=== PATIENT | female | born 2000 | race Hispanic/Latino ===

== ENCOUNTER 2022-02-28 15:09 | Emergency (ER) | payer BC, SELFPAY ==
[2022-02-28 15:27] VITALS: BP 120/68; PULSE 66; RESP 18; TEMP 36.7; O2SAT 100
[2022-02-28 15:40] LABS: Add Urine Microscopic? YES; Appearance Urine Clear (Clear); Bilirubin Urine Negative (Negative); Blood Urine Negative (Negative); Color Urine Yellow (Yellow); Glucose Urine UA Negative (Negative); Ketones Urine Negative (Negative); Leukocyte Esterase Ur Trace LEU/UL (Negative); Nitrate Urine Negative (Negative); Protein Urine Negative (Negative); Specific Grav Ur <= 1.005 (1.001-1.035); Urobilinogen Urine 0.2 mg/dL (<2.0)
[2022-02-28 15:49] LABS: Mucus Urine Rare /lpf; RBC Urine 0-2 /hpf (0-2); Squamous Epithelial Cell Urine Rare /hpf (Few)
[2022-02-28 17:26] VITALS: BP 124/59; PULSE 68; RESP 17; TEMP 36.9; O2SAT 100
--- NOTE | 2022-02-28 19:52 | ED.FEMALEGU ---
HPI - Female Genitourinary General Chief complaint: Urogenital-Female <Graciela Carlos PA-C - Last Filed: 02/28/22 22:24> Stated complaint: STD testing <Graciela Carlos PA-C - Last Filed: 02/28/22 22:24> Time Seen by Provider: 02/28/22 19:03 <Graciela Carlos PA-C - Last Filed: 02/28/22 22:24> History of Present Illness HPI Narrative: Patient is a 21-year-old female here for STI screening. Patient states that her sexual partner slept with a new partner 2 weeks ago, and since then has her partner has been having dysuria. Patient herself is asymptomatic, denies any dysuria, urgency, frequency, burning, vaginal discharge, fevers, lower abdominal pain. She does note that she had an episode of vaginal bleeding after intercourse 1 week ago, but states that she started her menstrual cycle shortly afterwards. <RICHARD Landa Last Filed: 02/28/22 22:24> Related Data Allergies/Adverse reactions: Allergies Allergy/AdvReac Type Severity Reaction Status Date / Time No Known Allergies Allergy Verified 02/28/22 20:30 <RICHARD Landa Last Filed: 02/28/22 22:24> Review of Systems Review of Systems: Gen: Denies fevers or chills Eyes: Denies eye pain or visual change ENT: Denies congestion Respiratory: Denies shortness of breath or cough CV: Denies chest pain or palpitations GI: Denies abdominal pain nausea, emesis or diarrhea denies burning, urgency, frequency or hematuria Musculoskeletal: Denies back pain or muscle pain Neuro: Denies numbness, tingling, weakness or focal weakness Skin: Denies rash Except as documented, all other systems reviewed and negative <RICHARD Landa Last Filed: 02/28/22 22:24> Exam Narrative: APPEARANCE: Well appearing, no pain in distress, well-nourished. Head: Normocephalic and atraumatic. EYES: PERRLA/EOMI, conjunctivae clear NOSE: No nasal drainage EARS: External ear normal in appearance THROAT: Oropharynx is clear. Mucous membranes are moist. NECK: Supple. No adenopathy, no masses. RESPIRATORY: Airway patent, respirations nonlabored. Clear to auscultation bilaterally, no rales, rhonchi, wheezing. CARDIOVASCULAR: Regular rate and rhythm without murmurs, rubs, or gallops. ABDOMINAL: Normoactive bowel sounds. Soft, nontender, nondistended. No rebound tenderness or guarding. MUSCULOSKELETAL: Extremities are warm and well-perfused. Moves all extremities well. No edema. : Exam performed with food and nutrition teacher Kayla. Scant amount of blood noted in vaginal vault. No cervical lesions. No abnormal discharge. No cervical motion tenderness. NEURO: Normal speech. No focal neurologic deficits. SKIN: Skin is warm and dry. No rashes. PSYCHIATRIC: Normal affect/mood.. 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 I agree with the assessment and plan as documented. <Obed Mckeon MD - Last Filed: 03/11/22 07:44> Vital Signs Vital signs: Vital Signs Temperature 98.1 F 02/28/22 15:27 Pulse Rate 66 02/28/22 15:27 Respiratory Rate 18 02/28/22 15:27 Blood Pressure 120/68 02/28/22 15:27 Pulse Oximetry 100 02/28/22 15:27 Oxygen Delivery Room Air 02/28/22 15:27 Temperature 98.4 F 02/28/22 17:26 Pulse Rate 68 02/28/22 20:45 Respiratory Rate 14 02/28/22 20:45 Blood Pressure 120/87 02/28/22 20:45 Pulse Oximetry 95 02/28/22 20:45 Oxygen Delivery Room Air 02/28/22 15:27 <Graciela Carlos PA-C - Last Filed: 02/28/22 22:24> Vital Signs Temperature 98.1 F 02/28/22 15:27 Pulse Rate 66 02/28/22 15:27 Respiratory Rate 18 02/28/22 15:27 Blood Pressure 120/68 02/28/22 15:27 Pulse Oximetry 100 02/28/22 15:27 Oxygen Delivery Room Air 02/28/22 15:27 Temperature 98.4 F 02/28/22 17:26 Pulse Rate 68 02/28/22 20:45 Respiratory Rate 14 02/28/22
[2022-02-28] MEDS: WATER, STERILE FOR INJECTION 10 ML VIAL XX (20:18)
[2022-02-28] MEDS: cefTRIAXone 1 GM VIAL 0.5 GM IM (20:18)
[2022-02-28] MEDS: DOXYCYCLINE HYCLATE 100 MG TABLET PO (20:18)
--- NOTE | 2022-02-28 20:40 | P.HP_ITS ---
H&P: HPI History of Present Illness Date/Time: 02/28/22 20:40 Meds Home Medications and Allergies Home Medications Medication Instructions Recorded Confirmed Type doxycycline hyclate 100 mg capsule 100 mg PO BID #13 caps 02/28/22 Rx Allergies Allergy/AdvReac Type Severity Reaction Status Date / Time No Known Allergies Allergy Verified 02/28/22 20:30 Vital Signs Vital Signs - 24 hr 02/28/22 15:27 02/28/22 17:26 Temperature 98.1 F 98.4 F Pulse Rate 66 68 Respiratory Rate 18 17 Blood Pressure 120/68 124/59 L Pulse Oximetry 100 100 Oxygen Delivery Room Air H&P: Results Labs Labs: Urine 02/28/22 Range/Units 15:30 Urine Color Yellow (Yellow) Urine Appearance Clear (Clear) Urine pH 6.0 (5.0-9.0) Ur Specific [place] <= 1.005 (1.001-1.035) Urine Protein Negative (Negative) mg/dL Urine Glucose (UA) Negative (Negative) mg/dL
[2022-02-28 20:45] VITALS: BP 120/87; PULSE 68; RESP 14; O2SAT 95
== END 2022-02-28 20:47 | disposition home or self-care (01) ==
PROVIDERS: Emergency Medicine; Physician Assistant; Emergency Provider Preventive Medicine Aerospace Medicine
DX: Z11.3 Encounter for screening for infections with a predominantly sexual mode of transmission (principal)
CPT/HCPCS: 81001; 81025; 87491; 87591; 87808; 96372; 99284; A9270; J0696

== ENCOUNTER 2022-03-18 08:52 | Emergency (ER) | payer BC, SELFPAY ==
--- NOTE | ~2022-03-18 | CT_ITS ---
EXAMINATION: CT abdomen pelvis w con DATE: 03/18/2022 11:23 INDICATION: Pelvic pain for 4 days. TECHNIQUE: Computed tomography (CT) of the abdomen and pelvis was performed with 100 cc Omnipaque 350 intravenous contrast. The dose-length product was 161.75 mGy-cm. Automated exposure control and iter ative reconstruction technique were employed. COMPARISON: None. FINDINGS: Lung bases are unremarkable. Heart size normal. No significant pleural or pericardial effus ion. The liver, spleen, pancreas, adrenal glands or kidneys are unremarkable. Gallbladder is present. Nonobstructive bowel gas pattern. Bladder wall is mildly thickened, although not well distended. Sma ll amount of free fluid in the right pelvis. No significant vascular abnormality. No lymphadenopathy. There is endometrial thickening. IMPRESSION: 1. Mildly thickened bladder wall, possibly due to underdistention or cystitis. Correlate with urinaly sis. 2: Mild endometrial thickening. Reviewed, dictated and finalized at location B. IMPRESSION: 1. Mildly thickened bladder wall, possibly due to underdistention or cystitis. Correlate with urinalysis. 2: Mild endometrial thickening.
[2022-03-18 08:57] VITALS: BP 130/93
--- NOTE | 2022-03-18 09:03 | ED.FEMALEGU ---
HPI - Female Genitourinary General Chief complaint: Urogenital-Female Stated complaint: PID Symptms Time Seen by Provider: 03/18/22 08:56 History of Present Illness HPI Narrative: 21-year-old nontoxic appearing female presents to the emergency room for evaluation of returning pelvic pain. Patient states she was recently diagnosed for chlamydia 2 weeks ago, and completed a course of doxycycline. Patient states that she followed up with her LABORATORY MONITOR following the completion of her antibiotics, and was told that it was safe to resume sex. Patient states that she remained abstinent while taking her course of antibiotics. Patient states that she continued to have intercourse with the partner that infected her. Reports that her partner did also complete a course of antibiotics. Patient states that she began having pelvic pain about 4 days ago. Is concerned she may have PID. Denies fever, nausea vomiting, flank pain. Related Data Allergies Allergy/AdvReac Type Severity Reaction Status Date / Time No Known Allergies Allergy Verified 02/28/22 20:30 Review of Systems Review of Systems: CONSTITUTIONAL: Denies fever, chills, or sweats. EYES: Denies visual changes, redness, or discharge. ENT: Denies rhinorrhea, congestion, sore throat, or otalgia. CARDIOVASCULAR: Denies chest pain, palpitations, or edema. RESPIRATORY: Denies cough or dyspnea. GASTROINTESTINAL: Reports pelvic pain GENITOURINARY: Denies dysuria or hematuria. SKIN: Denies rash or itching. MUSCULOSKELETAL: Denies back pain, joint pain, or myalgia. NEUROLOGIC: Denies headache, numbness, dizziness, or weakness. PSYCHIATRIC: Denies anxiety or depression. Exam Narrative: GENERAL: Well-appearing, well-nourished, no physical limitations, and in no acute distress. HEAD: Normocephalic, atraumatic. EYES: Conjunctivae normal, PERRLA and EOMI. CHEST: Clear to auscultation. No respiratory distress. No wheezes rales or rhonchi. No tenderness. HEART: Regular rate and rhythm. No murmur heard. Normal peripheral pulses. ABDOMEN: Soft, suprapubic tenderness, nondistended, normal active bowel sounds. : Thick, white, chunky vaginal discharge in the vault. Cervical os is pink and closed. Positive cervical motion tenderness. No adnexal tenderness no external lesions, masses, rashes or ulcerations. BACK: No CVA tenderness; No cervical/thoracic/lumbar tenderness, step-offs, bony abnormality; FROM EXTREMITIES: Normal range of motion. No edema. No clubbing or cyanosis SKIN: Warm, dry, no rash. No noted wounds NEURO: No focal deficits. Alert and oriented x3. MAEW. CN's II-XI intact bilaterally, normal gait PSYCH: Cooperative. Normal mood and affect. Course Vital Signs Vital signs: Vital Signs Blood Pressure 130/93 H 03/18/22 08:57 Temperature 36.9 C 03/18/22 09:04 Pulse Rate 88 03/18/22 11:57 Respiratory Rate 16 03/18/22 11:57 Blood Pressure 117/75 03/18/22 11:57 Pulse Oximetry 100 03/18/22 11:57 Oxygen Delivery Room Air 03/18/22 09:04 MDM - Female Genitourinary MDM Narrative Medical decision making narrative: 21-year-old female presented emergency room for evaluation of suprapubic pain. Patient was recently diagnosed and treated for chlamydial infection. Patient returned to having intercourse with the individual who infected her. Pelvic exam showed evidence of moderate amount of white thick vaginal discharge, with no irritation of the vaginal canal. CT scan showed no evidence of pelvic inflammatory disease. Patient likely experiencing yeast infection along with an early UTI. Lab Data Result diagrams: 03/18/22 09:23 03/18/22 09:23 Labs: Lab Results 03/18/22 03/18/22 03/18/22 Range/Units 09:23 09:23 09:23 WBC 9.6 (4.5-10.0) K/mm3 RBC 4.07 L (4.2-5.4) M/mm3 Hgb 12.8 (12.0-15.0) g/dL Hct 38.5 (37.0-47.0) % MCV 94.6 (80-100) fl MCH 31.4 (26-34) pg MCHC 33.2 (32-36) g/dl RDW 13.1
[2022-03-18 09:04] VITALS: BP 130/93; PULSE 88; RESP 18; TEMP 36.9; O2SAT 99
[2022-03-18 09:29] LABS: Basophils Percent Auto 0.3 % (0.2-1.2); Eosinophils Absolute Auto 0.1 K/mm3 (0-0.3); Eosinophils Percent Auto 0.6 % (0-4.4); Hematocrit 38.5 % (37.0-47.0); Hemoglobin 12.8 g/dL (12.0-15.0); Immature Granulocyte Absolute 0.02 K/mm3 (0.00-0.031); Immature Granulocyte Percent A 0.2 % (0-0.5); Lymphocytes Absolute Auto 1.93 K/mm3 (0.9-3.2); Lymphocytes Percent Auto 20.2 % (18.3-44.2); Mean Corpuscular HGB Conc 33.2 g/dl (32-36); Mean Corpuscular Hemoglobin 31.4 pg (26-34); Mean Corpuscular Volume 94.6 fl (80-100); Mean Platelet Volume 10.1 fl (7.4-10.4); Monocytes Absolute Auto 0.6 K/mm3 (0.1-0.6); Monocytes Percent Auto 6.6 % (2.6-8.5); Neutrophils Absolute Auto 6.9 K/mm3 (1.3-6.7); Neutrophils Percent Auto 72.1 % (45.5-73.1); Platelet Count Result 255 k/mm3 (150-375); Red Blood Count 4.07 M/mm3 (4.2-5.4); Red Cell Distribution Width 13.1 % (11.5-14.5); White Blood Count 9.6 K/mm3 (4.5-10.0)
[2022-03-18 09:38] LABS: Appearance Urine Clear (Clear); Bilirubin Urine Negative (Negative); Blood Urine Negative (Negative); Color Urine Yellow (Yellow); Glucose Urine UA Negative (Negative); Ketones Urine 1+ mg/dL (Negative); Leukocyte Esterase Ur Trace LEU/UL (Negative); Nitrate Urine Negative (Negative); Protein Urine Negative (Negative); Specific Grav Ur 1.025 (1.001-1.035); Urobilinogen Urine 0.2 mg/dL (<2.0); pH Urine 5.5 (5.0-9.0)
[2022-03-18 09:40] LABS: Lactic Acid Reflex 0.5 mmol/L (0.7-2.0)
[2022-03-18 09:44] LABS: Alanine Aminotransferase 14 U/L (6-35); Albumin Level 4.3 g/dL (3.5-5.1); Alkaline Phosphatase 44 U/L (38-126); Anion Gap 11 mmol/L (8-16); Aspartate Amino Transferase 35 U/L (14-36); Bilirubin,Total 0.7 mg/dL (0.2-1.3); Blood Urea Nitrogen 12 mg/dL (7-17); Calcium 8.8 mg/dL (8.4-10.2); Carbon Dioxide 19 mmol/L (22-30); Chloride 104 mmol/L (98-107); Estimated Glomerular Filt Rate > 60; Glucose 81 mg/dL (65-110); Potassium 4.1 mmol/L (3.4-5.0); Sodium 134 mmol/L (137-145)
[2022-03-18 09:44] LABS: Bacteria Urine Trace /hpf; Mucus Urine Few /lpf; RBC Urine 0-2 /hpf (0-2); Squamous Epithelial Cell Urine Occasional /hpf (Few); WBC Urine 0-3 /hpf
[2022-03-18 09:50] LABS: Add Urine Microscopic? YES
[2022-03-18] MEDS: SODIUM CHLORIDE 0.9% IV 1,000 ML 999 ML IV CONT (10:04)
[2022-03-18 11:11] LABS: Pregnancy On Board Control Positive; Urine Pregnancy Test Negative
[2022-03-18 11:57] VITALS: BP 117/75; PULSE 88; RESP 16; O2SAT 100
== END 2022-03-18 12:17 | disposition home or self-care (01) ==
PROVIDERS: Emergency Provider Nurse Practitioner Family
DX: N39.0 Urinary tract infection, site not specified (principal); B37.3 Candidiasis of vulva and vagina
CPT/HCPCS: 36415; 74177; 80053; 81001; 81025; 83605; 85025; 87491; 87591; 87808; 96360; 99284; J7030; Q9967

== ENCOUNTER 2022-07-25 09:59 | Emergency (ER) | payer BC, OTHER, MEDICAID, SELFPAY ==
--- NOTE | 2022-07-25 10:17 | ED.NAVMDI ---
HPI - Nausea/Vomiting/Diarrhea General Chief complaint: Nausea/Vomiting/Diarrhea Stated complaint: nausea, bloating, vomiting, diarrhea Time Seen by Provider: 07/25/22 10:07 History of Present Illness HPI Narrative: Pt presents with bloated feeling in stomach with vomiting x 6 and several episodes of diarrhea since 0300 today. Pt denies fever or other sick contacts. Pt not able to keep down fluids. Related Data Allergies Allergy/AdvReac Type Severity Reaction Status Date / Time No Known Allergies Allergy Verified 07/25/22 10:47 Review of Systems Review of Systems: All systems reviewed & are unremarkable except as noted in HPI and below Exam Const: General: healthy appearing Nutritional Appearance: well nourished Orientation/consciousness: patient oriented x3 Limitations: no limitations HENMT: Head: normal to inspection Mouth: Yes moist mucous membranes Resp: Effort & Inspection: normal respiratory effort Auscultation: clear to auscultation bilaterally Cardio: Rate: regular rate Rhythm: regular rhythm GI: GI Palp: Yes Soft to palpation and No Tenderness to palpation present (GI) Auscultation: normal bowel sounds Back/Spine/Pelvis: Back: no CVA tenderness Skin: General skin exam: normal color Rashes: no rashes Wounds: no wounds Neuro: General: patient oriented x3, moves all extremities and no focal motor deficits Speech: normal speech Extrem: General: normal to inspection and no clubbing, cyanosis or edema Psych: Mental Status: mental status grossly normal Affect: normal affect Attitude: cooperative Course Vital Signs Vital signs: Vital Signs Temperature 98.7 F 07/25/22 10:28 Pulse Rate 89 07/25/22 10:28 Respiratory Rate 18 07/25/22 10:28 Blood Pressure 141/85 H 07/25/22 10:28 Pulse Oximetry 99 07/25/22 10:28 Oxygen Delivery Room Air 07/25/22 10:28 Temperature 98.7 F 07/25/22 10:28 Pulse Rate 77 07/25/22 11:42 Respiratory Rate 20 07/25/22 11:42 Blood Pressure 116/78 07/25/22 13:08 Pulse Oximetry 99 07/25/22 10:28 Oxygen Delivery Room Air 07/25/22 10:28 MDM - Nausea/Vomiting/Diarrhea MDM Narrative Medical decision making narrative: likely viral gastroenteritis, will check electrolytes to be safe and give IVF and zofran. Still nauseated after zofran, labs not concerning, will try compazine 10 mg IV. Compazine relieved nausea, ok to discharge on antiemetics Lab Data 07/25/22 10:28 07/25/22 10:29 Labs: Lab Results 07/25/22 07/25/22 Range/Units 10:28 10:29 WBC 9.5 (4.5-10.0) K/mm3 RBC 4.19 L (4.2-5.4) M/mm3 Hgb 13.5 (12.0-15.0) g/dL Hct 40.2 (37.0-47.0) % MCV 95.9 (80-100) fl MCH 32.2 (26-34) pg MCHC 33.6 (32-36) g/dl RDW 13.2 (11.5-14.5) % Plt Count TNP MPV 11.6 H (7.4-10.4) fl Immature Gran % (Auto) 0.4 (0-0.5) % Neut % (Auto) 89.5 H (45.5-73.1) % Lymph % (Auto) 6.9 L (18.3-44.2) % [place] % (Auto) 2.9 (2.6-8.5) % Eos % (Auto) 0.1 (0-4.4) % Baso % (Auto) 0.2 (0.2-1.2) % Lymph # (Auto) 0.66 L (0.9-3.2) K/mm3 [place] # (Auto) 0.3 (0.1-0.6) K/mm3 Eos # (Auto) 0.0 (0-0.3) K/mm3 Baso # (Auto) 0.0 (0.0-0.1) K/mm3 Abs Immat Gran (auto) 0.04 H (0.00-0.031) K/mm3 Absolute Neuts (auto) 8.5 H (1.3-6.7) K/mm3 Absolute Nucleated RBC 0.0 (0.0-0.012) K/mm3 Nucleated RBC % 0.0 (0.0-0.2) % Platelet Estimate Adequate (Adequate) Clumped Platelets Present % Immature Plt Fraction 9.7 (0.9-11.2) % Schistocytes None seen (NORMAL) Sodium 135 L (137-145) mmol/L Potassium 4.0 (3.4-5.0) mmol/L Chloride 107 (98-107) mmol/L Carbon Dioxide 21 L (22-30) mmol/L Anion Gap 7 L (8-16) mmol/L BUN 14 (7-17) mg/dL Creatinine 0.60 L (0.7-1.0) mg/dL Estim Creat Clear Calc 90 ml/min Estimated GFR > 60 (59 - ) Glucose 143 H (65-110) mg/dL Calcium 8.9 (8.4-10.2) mg/dL Total Bilirubin 0.7 (0.2-1.3
[2022-07-25 10:28] VITALS: BP 141/85; PULSE 89; RESP 18; TEMP 37.1; O2SAT 99
[2022-07-25] MEDS: SODIUM CHLORIDE 0.9% IV 1,000 ML 999 ML IV CONT (10:39)
[2022-07-25] MEDS: ONDANSETRON INJ 4 MG/2 ML VIAL IV PUSH (10:39)
[2022-07-25 10:53] LABS: Basophils Percent Auto 0.2 % (0.2-1.2); Eosinophils Percent Auto 0.1 % (0-4.4); Hematocrit 40.2 % (37.0-47.0); Hemoglobin 13.5 g/dL (12.0-15.0); Immature Granulocyte Absolute 0.04 K/mm3 (0.00-0.031); Immature Granulocyte Percent A 0.4 % (0-0.5); Immature Platelet Fraction Pct 9.7 % (0.9-11.2); Lymphocytes Absolute Auto 0.66 K/mm3 (0.9-3.2); Lymphocytes Percent Auto 6.9 % (18.3-44.2); Mean Corpuscular HGB Conc 33.6 g/dl (32-36); Mean Corpuscular Hemoglobin 32.2 pg (26-34); Mean Corpuscular Volume 95.9 fl (80-100); Mean Platelet Volume 11.6 fl (7.4-10.4); Monocytes Absolute Auto 0.3 K/mm3 (0.1-0.6); Monocytes Percent Auto 2.9 % (2.6-8.5); Neutrophils Absolute Auto 8.5 K/mm3 (1.3-6.7); Neutrophils Percent Auto 89.5 % (45.5-73.1); Red Blood Count 4.19 M/mm3 (4.2-5.4); Red Cell Distribution Width 13.2 % (11.5-14.5); White Blood Count 9.5 K/mm3 (4.5-10.0)
[2022-07-25 10:56] LABS: Alanine Aminotransferase 21 U/L (6-35); Albumin Level 4.4 g/dL (3.5-5.1); Alkaline Phosphatase 50 U/L (38-126); Anion Gap 7 mmol/L (8-16); Aspartate Amino Transferase 29 U/L (14-36); Bilirubin,Total 0.7 mg/dL (0.2-1.3); Blood Urea Nitrogen 14 mg/dL (7-17); Calcium 8.9 mg/dL (8.4-10.2); Carbon Dioxide 21 mmol/L (22-30); Chloride 107 mmol/L (98-107); Estimated CRCL calculation 90 ml/min; Estimated Glomerular Filt Rate > 60; Glucose 143 mg/dL (65-110); Sodium 135 mmol/L (137-145)
[2022-07-25 11:25] LABS: Platelet Clumps Present; Platelet Estimate Adequate (Adequate); Schistocytes None Seen (NORMAL)
[2022-07-25 11:42] VITALS: BP 118/63; PULSE 77; RESP 20
[2022-07-25] MEDS: PROCHLORPERAZINE EDISYLATE 10 MG/2 ML VIAL IV PUSH (11:43)
[2022-07-25 13:08] VITALS: BP 116/78
== END 2022-07-25 13:10 | disposition home or self-care (01) ==
PROVIDERS: Emergency Provider Emergency Medicine
DX: K52.9 Noninfective gastroenteritis and colitis, unspecified (principal)
CPT/HCPCS: 36415; 80053; 85025; 85055; 96361; 96374; 96375; 99284; J0780; J2405; J7030

== ENCOUNTER 2023-05-13 19:25 | Observation (INO) | payer BC, OTHER, SELFPAY ==
[2023-05-13] VITALS (12 sets, daily range): BP systolic 122–136; BP diastolic 73–93; PULSE 71–104; RESP 16–19; TEMP 36.7; O2SAT 97–100
--- NOTE | ~2023-05-13 | CT_ITS ---
EXAMINATION: CT abdomen pelvis w con DATE: 05/13/2023 21:23 INDICATION: Lower abdominal pain TECHNIQUE: Computed tomography (CT) of the abdomen and pelvis was performed with 100 mL Omnipaque-350 intravenous contrast. Automated exposure control and iterative reconstruction technique were employe d. The dose-length product was 187.85 mGy-cm. COMPARISON: 03/18/2022 FINDINGS: Lung bases are clear. Heart size is normal. No pericardial or pleural effusion. Unchanged focal hepat ic steatosis along the ligamentum teres. Gallbladder, spleen, pancreas, bilateral adrenal glands and kidneys are normal. Bowels including the appendix are normal. There is diffuse bladder wall thickenin g suspicious for cystitis. Anteverted uterus and bilateral adnexa are unremarkable. No free intraperi toneal gas or fluid. No pathologically enlarged abdominal or pelvic lymphadenopathy. Mild lower lumba r spondylosis. IMPRESSION: 1. Diffuse bladder wall thickening suspicious for cystitis. Correlate with urinalysis. Reviewed, dictated and finalized at location A. IMPRESSION: 1. Diffuse bladder wall thickening suspicious for cystitis. Correlate with urin alysis.
--- NOTE | 2023-05-13 19:52 | ED.ABDPAIN ---
HPI - Abdominal Pain General Chief Complaint: Abdominal Pain Stated Complaint: abd pain, back pain, N/V Time Seen by Provider: 05/13/23 19:40 Source: patient Mode of arrival: ambulatory Limitations: no limitations History of Present Illness HPI narrative: 22 years old white female drove herself to the emergency room complaining of mid back pain, across, started 6 hours prior to arrival to the emergency room radiating to the upper abdomen bilaterally, denies any relieving or aggravating factors. No history of abdominal surgery. On arrival to the ED patient vomited 3 times. No diarrhea, no fever or chills. Patient had a few drinks of alcohol last night. Related Data Allergies Allergy/AdvReac Type Severity Reaction Status Date / Time No Known Allergies Allergy Verified 07/25/22 10:47 Review of Systems Review of Systems: All systems reviewed & are unremarkable except as noted in HPI and below PMFSH Past Medical History Medical History (Updated 05/13/23 @ 21:48 by Ingrid Kaba PA-C) No significant medical problems Social History Social History Social History: Surrogate medical decision maker: Clarisse Art, mother. Code status: Full code. Exam Narrative: General appearance: Well-developed, well-nourished Skin: Normal color Head: Normocephalic, nontraumatic Eyes: Clear conjunctiva ENT: Oropharynx normal, ears normal, nose normal Neck: Supple, nontender Chest and respiratory: Airway patent, no respiratory distress, no accessory muscle use Heart: Regular rate/rhythm Abdomen: Soft, epigastric tenderness, flank tenderness bilaterally mainly on the right side, no organomegaly, quiet bowel sounds Vascular: Normal peripheral pulses, normal capillary refill. 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 Date: 05/13/23 Time: 21:19 Vital Signs Vital signs: Vital Signs Temperature 36.7 C 05/13/23 19:30 Pulse Rate 104 H 05/13/23 19:30 Respiratory Rate 16 05/13/23 19:30 Blood Pressure 136/85 05/13/23 19:30 Pulse Oximetry 100 05/13/23 19:30 Oxygen Delivery Room Air 05/13/23 19:30 Temperature 36.7 C 05/13/23 19:30 Pulse Rate 72 05/13/23 20:38 Respiratory Rate 18 05/13/23 20:38 Blood Pressure 135/73 05/13/23 20:38 Pulse Oximetry 97 05/13/23 20:38 Oxygen Delivery Room Air 05/13/23 19:30 MDM - Abdominal Pain MDM Narrative Medical decision making narrative: Patient is 22 years old female presents with back pain mainly right flank area and upper abdominal pain vitals are stable, afebrile exam remarkable for the above blood work with elevated WBC 20.8 with left shift, urine analysis remarkable for infection, pyelonephritis is my concern, 1 g Rocephin IV given, 1 L of normal saline given, 4 mg of morphine and 4 mg of Zofran IV given with remarkable improvement. CT abdomen pelvis with IV contrast that showed finding consistent with cystitis. I believe patient have pyelonephritis which she is consistent with her physical examination with severe tenderness at the mid back mainly right flank area. Admission to the hospital is appropriate at this time because of the vomiting, unable to keep anything down and leukocytosis. Patient agreed. Differential Diagnosis Differential diagnosis: Likely abdominal pain, calculus of kidney, pancreatitis and other (Urinary tract infection, pyelonephritis) Medical Records Attestation: I reviewed the patient's medical r
[2023-05-13] MEDS: ONDANSETRON INJ 4 MG/2 ML VIAL IV PUSH (20:06)
[2023-05-13] MEDS: SODIUM CHLORIDE 0.9% IV 1,000 ML 999 ML IV CONT (20:06)
[2023-05-13] MEDS: MORPHINE SULFATE (*CRX) 4 MG/ML INJ IV PUSH (20:07)
[2023-05-13 20:14] LABS: Hematocrit 42.5 % (37.0-47.0); Mean Corpuscular HGB Conc 32.9 g/dl (32-36); Mean Corpuscular Hemoglobin 31.4 pg (26-34); Mean Corpuscular Volume 95.3 fl (80-100); Mean Platelet Volume 10.6 fl (7.4-10.4); Platelet Count Result 294 k/mm3 (150-375); Red Blood Count 4.46 M/mm3 (4.2-5.4); Red Cell Distribution Width 13.4 % (11.5-14.5); White Blood Count 20.8 K/mm3 (4.5-10.0)
[2023-05-13 20:20] LABS: Appearance Urine Turbid (Clear); Bacteria Urine 4+ /hpf; Bilirubin Urine Negative (Negative); Blood Urine 3+ (Negative); Color Urine Yellow (Yellow); Glucose Urine UA Negative (Negative); Ketones Urine 3+ mg/dL (Negative); Leukocyte Esterase Ur 3+ LEU/UL (Negative); Nitrate Urine Negative (Negative); Non Pathogenic Casts 0-2; Protein Urine 2+ mg/dL (Negative); RBC Urine >100 /hpf (0-2); Specific Grav Ur 1.016 (1.001-1.035); Squamous Epithelial Cell Urine None seen /hpf (Few); Urobilinogen Urine 0.2 mg/dL (<2.0); WBC Urine >100 /hpf; pH Urine 6.5 (5.0-9.0)
[2023-05-13 20:23] LABS: Add Urine Microscopic? YES
[2023-05-13 20:28] LABS: Alanine Aminotransferase 18 U/L (6-35); Albumin Level 4.9 g/dL (3.5-5.1); Alkaline Phosphatase 79 U/L (38-126); Anion Gap 11 mmol/L (8-16); Aspartate Amino Transferase 24 U/L (14-36); Blood Urea Nitrogen 10 mg/dL (7-17); Calcium 9.4 mg/dL (8.4-10.2); Carbon Dioxide 22 mmol/L (22-30); Chloride 102 mmol/L (98-107); Estimated CRCL calculation 77 ml/min; Estimated Glomerular Filt Rate > 60; Glucose 90 mg/dL (65-110); Lipase 66 U/L (23-300); Potassium 3.5 mmol/L (3.4-5.0); Sodium 135 mmol/L (137-145)
[2023-05-13 20:49] LABS: Basophils Percent Manual 1 % (0-1); Lymphocytes Absolute Manual 0.62 K/mm3 (1.1-4.5); Monocytes Absolute Manual 0.83 K/mm3 (0.1-0.90); Monocytes Percent Manual 4 % (3-9); Neutrophils Percent Manual 92 % (46-73); Total Cells Counted 100
[2023-05-13 20:50] LABS: Platelet Estimate Adequate (Adequate); Schistocytes None Seen (NORMAL)
--- NOTE | 2023-05-13 21:11 | PC.NURSE ---
Patient taken to CT at this time.
--- NOTE | 2023-05-13 21:41 | PM.IMHP ---
H&P: HPI History of Present Illness Date/Time: 05/13/23 21:30 Chief Complaint: Dysuria, nausea, vomiting, back pain. Narrative: This is a previously healthy 22-year-old female who presented to the emergency department via private vehicle from home for evaluation of dysuria, nausea, vomiting, back pain. The patient provides the following history. She has a history of urinary tract infections and finished antibiotics for the same a couple of weeks ago. She has had intermittent dysuria since that time however it seems to improve when she pushes fluid. Approximately 6 hours prior to arrival to the ED she developed near sudden onset of diffuse mid to low back pain with nausea and emesis x3. She was afebrile on arrival to the ED with stable blood pressures. Labs were pretty unremarkable aside from a sodium of 135 and a WBC count of 20.8. Urine was turbid with 2+ protein, 3+ ketones, 3+ blood, 3+ leukocyte esterase, greater than 100 RBC and WBC, and 4+ bacteria. CT of the abdomen and pelvis showed diffuse bladder wall thickening suspicious for cystitis. She received a dose of ceftriaxone and she is being admitted in this setting for further IV antibiotics and supportive care. Review of Systems Review of Systems: Twelve systems were reviewed and are negative except for as per HPI. [facility] Past Medical History Medical History (Updated 05/13/23 @ 21:48 by Ingrid Kaba PA-C) No significant medical problems Surgical History Surgical History (Updated 05/13/23 @ 22:25 by Ingrid Kaba PA-C) No history of previous surgery Family History Family History (Updated 05/13/23 @ 22:25 by Ingrid Kaba PA-C) Other Family history non-contributory Social History Social History (Updated 05/13/23 @ 22:26 by Ingrid Kaba PA-C) Social History: Surrogate medical decision maker: Clarisse Beverly, mother. Code status: Full code. Smoking status: Never smoker Alcohol intake: current Alcohol use details: Social alcohol use in moderation. Substance use: never Additional occupation/education comments: Works at [employer]. Meds Home Medications and Allergies Home Medications Medication Instructions Recorded Confirmed Type doxycycline hyclate 100 mg capsule 100 mg PO BID #13 caps 02/28/22 Rx fluconazole 100 mg tablet 200 mg PO WEEKLY #4 tabs 03/18/22 Rx nitrofurantoin 100 mg PO Q12H 5 days #10 caps 03/18/22 Rx monohydrate/macrocrystals 100 mg capsule (Macrobid) ondansetron 4 mg disintegrating 4 mg PO Q8H PRN nausea and 07/25/22 Rx tablet vomiting #14 tabs prochlorperazine 25 mg rectal 25 mg RECTAL Q12H PRN nausea and 07/25/22 Rx suppository (Compro) vomiting #12 ea Allergies Allergy/AdvReac Type Severity Reaction Status Date / Time No Known Allergies Allergy Verified 07/25/22 10:47 Vital Signs Vital Signs - 24 hr 05/13/23 19:30 05/13/23 20:38 Temperature 98.1 F Pulse Rate 104 H 72 Respiratory Rate 16 18 Blood Pressure 136/85 135/73 Pulse Oximetry 100 97 Oxygen Delivery Room Air Exam Narrative: General: Mildly ill-appearing female sitting up in bed in no acute distress. Weight: 54.5 kg. BMI: 23.5. HEENT: PERRL, EOMI. Sclera anicteric. Tacky mucous membranes. Neck: Supple. Respiratory: Lungs are clear to auscultation bilaterally. Cardiovascular: Tachycardic with normal S1-S2. Gastrointestinal: Abdomen is soft and nondistended with positive bowel sounds. She is tender to palpation in the suprapubic region with mild CVA tenderness bilaterally. No guarding or rebound tenderness. Skin: Warm and dry. Scattered bruises on the upper thighs. Extremities: No cyanosis, clubbing, or edema. Radial and pedal pulses intact. Neurological: Alert. Cranial nerves 2-12 are grossly intact. No gross focal deficits to casual conversation. Psychiatric: Pleasant and cooperative with normal mood and affect. H&P: Results Labs Labs: Short CBC 05/13/23 Range
--- NOTE | 2023-05-13 23:46 | ADMGEN ---
This patient, Lupe Art, was admitted to 3 Medical Room 345-. Patient/family oriented to hospital policies and general routines including ID bracelet, bed and alarms, visiting hours, pain management, procedures, bathroom and other care routines, personal items, smoking policy, room service/diet, and visiting hours. Information on how to activate the Rapid Response Team has been discussed. Patient/Family are encouraged to report perceived risks to care and to ask questions if they do not understand what they are told or what they should do.
[2023-05-13] MEDS: SODIUM CHLORIDE 0.9% IV 1,000 ML 100 ML IV CONT (23:57)
[2023-05-14 01:05] VITALS: BMI 20.2
[2023-05-14 01:06] VITALS: BP 125/84; PULSE 89; RESP 16; TEMP 37.3; O2SAT 100
[2023-05-14 05:40] LABS: Basophils Percent Auto 0.3 % (0.2-1.2); Eosinophils Percent Auto 0.1 % (0-4.4); Hematocrit 37.3 % (37.0-47.0); Hemoglobin 12.1 g/dL (12.0-15.0); Immature Granulocyte Absolute 0.05 K/mm3 (0.00-0.031); Immature Granulocyte Percent A 0.4 % (0-0.5); Lymphocytes Absolute Auto 2.31 K/mm3 (0.9-3.2); Lymphocytes Percent Auto 16.2 % (18.3-44.2); Mean Corpuscular HGB Conc 32.4 g/dl (32-36); Mean Corpuscular Hemoglobin 31.5 pg (26-34); Mean Corpuscular Volume 97.1 fl (80-100); Mean Platelet Volume 10.2 fl (7.4-10.4); Monocytes Percent Auto 6.7 % (2.6-8.5); Neutrophils Absolute Auto 10.9 K/mm3 (1.3-6.7); Neutrophils Percent Auto 76.3 % (45.5-73.1); Platelet Count Result 249 k/mm3 (150-375); Red Blood Count 3.84 M/mm3 (4.2-5.4); Red Cell Distribution Width 13.4 % (11.5-14.5); White Blood Count 14.3 K/mm3 (4.5-10.0)
[2023-05-14 05:50] VITALS: BP 128/58; PULSE 81; RESP 16; TEMP 36.5; O2SAT 100
[2023-05-14 05:52] LABS: Anion Gap 7 mmol/L (8-16); Blood Urea Nitrogen 6 mg/dL (7-17); Calcium 8.5 mg/dL (8.4-10.2); Carbon Dioxide 24 mmol/L (22-30); Chloride 104 mmol/L (98-107); Estimated CRCL calculation 89 ml/min; Estimated Glomerular Filt Rate > 60; Glucose 81 mg/dL (65-110); Magnesium 2.1 mg/dL (1.6-2.3); Potassium 3.9 mmol/L (3.4-5.0); Sodium 135 mmol/L (137-145)
[2023-05-14] MEDS: SODIUM CHLORIDE 0.9% IV 1,000 ML 100 ML IV CONT ×2 (09:56→20:44)
--- NOTE | 2023-05-14 13:30 | PM.IMPN ---
Progress Note: A&P Assessment and Plan (1) Urinary tract infection: Code(s): N39.0 - Urinary tract infection, site not specified Status: Acute Assessment and Plan: urine with 3+ blood, 3+ leukocyte esterase, greater than 100 rbc's and wbc's and 4+ bacteria IV fluids continue. Rocephin continued. Urine cultures pending. Blood cultures pending Tailor antibiotic therapy to culture results (2) Dehydration: Code(s): E86.0 - Dehydration Status: Acute Assessment and Plan: continue IV fluid hydration. Subjective Date/time seen: 05/14/23 13:30 Interval history: Patient doing well and states that she is feeling much better. She denies any nausea, back pain and dysuria. States that medications and antibiotics had made her feel much better. Discussed with her that it is do to wait for urine cultures to return prior to discharge and she voiced understanding. Exam Narrative: GENERAL: Comfortable, no acute distress HENMT: moist mucous membranes EYES: EOM intact b/l NECK: no lymphadenopathy RESPIRATORY: clear to auscultation CARDIO: RRR GI: soft, nontender, bowel sounds present SKIN: no rashes EXTREMITIES: no edema, redness or tenderness Objective Data Vital Signs Vital Signs: Vital Signs - 24 hr 05/13/23 19:30 05/13/23 20:38 05/13/23 20:39 Temperature 98.1 F Pulse Rate 104 H 72 Respiratory Rate 16 18 Blood Pressure 136/85 135/73 Pulse Oximetry 100 97 99 Oxygen Delivery Room Air 05/13/23 20:45 05/13/23 21:31 05/13/23 21:40 Temperature Pulse Rate Respiratory Rate Blood Pressure 134/93 H Pulse Oximetry 100 100 99 Oxygen Delivery 05/13/23 21:50 05/13/23 22:17 05/13/23 22:30 Temperature Pulse Rate Respiratory Rate Blood Pressure Pulse Oximetry 99 99 98 Oxygen Delivery 05/13/23 22:56 05/13/23 23:00 05/13/23 23:31 Temperature Pulse Rate 89 71 Respiratory Rate 17 19 Blood Pressure 122/79 123/92 H Pulse Oximetry 98 99 100 Oxygen Delivery 05/13/23 23:40 05/14/23 01:06 05/14/23 05:50 Temperature 99.1 F 97.7 F Pulse Rate 89 81 Respiratory Rate 16 16 Blood Pressure 125/84 128/58 L Pulse Oximetry 100 100 Oxygen Delivery Room Air Intake/Output Intake/Output: Intake & Output 05/11/23 05/12/23 05/13/23 05/14/23 23:59 23:59 23:59 23:59 Intake Total 1050 1690 Output Total 600 Balance 1050 1090 Meds/Results Medications: Active Medications Generic Name Dose Route Start Last Admin Trade Name Freq PRN Reason Stop Dose Admin Acetaminophen 650 mg 05/13/23 21:26 Acetaminophen 325 Mg Tablet PO Q4H PRN Mild Pain (1-3) or Fever Ceftriaxone Sodium 1 gm in 50 mls @ 100 mls/hr 05/13/23 21:00 05/13/23 22:09 Rocephin 1 Gm/Ns 50 Ml IVPB Infused Q24H JESI Infusion Sodium Chloride 1,000 mls @ 100 mls/hr 05/13/23 21:30 05/14/23 09:56 Normal Saline Iv IV CONT 100 mls/hr .Q10H JESI Administration Ondansetron HCl 4 mg 05/13/23 21:26 Ondansetron Inj 4 Mg/2 Ml Vial IV PUSH Q4H PRN Nausea Radiology Results: ITS Impressions Abdomen/Pelvis CT 05/13/23 21:36 IMPRESSION: 1. Diffuse bladder wall thickening suspicious for cystitis. Correlate with urinalysis. Labs Labs: Laboratory Results - last 24 hr 05/13/23 05/14/23 20:05 05:28 WBC 20.8 H 14.3 H RBC 4.46 3.84 L Hgb 14.0 12.1 Hct 42.5 37.3 MCV 95.3 97.1 MCH 31.4 31.5 MCHC 32.9 32.4 RDW 13.4 13.4 Plt Count 294 249 MPV 10.6 H 10.2 Immature Gran % (Auto) Not Reportable 0.4 Neut % (Auto) Not Reportable 76.3 H Lymph % (Auto) Not Reportable 16.2 L [place] % (Auto) Not Reportable 6.7 Eos % (Auto) Not Reportable 0.1 Baso % (Auto) Not Reportable 0.3 Lymph # (Auto) Not Reportable 2.31 [place] # (Auto) Not Reportable 1.0 H Eos # (Auto) Not Reportable 0.0 Baso # (Auto) Not Reportable 0.0 Abs Immat Gran (auto) Not Reportab
[2023-05-14 14:00] VITALS: BP 130/70; PULSE 89; RESP 14; TEMP 36.4; O2SAT 99
[2023-05-14 20:43] VITALS: BP 124/69; PULSE 66; RESP 18; TEMP 36.6; O2SAT 100
[2023-05-15 05:12] VITALS: BP 108/67; PULSE 78; RESP 18; TEMP 36.3; O2SAT 100
[2023-05-15 06:16] LABS: Basophils Percent Auto 0.7 % (0.2-1.2); Eosinophils Absolute Auto 0.1 K/mm3 (0-0.3); Eosinophils Percent Auto 1.7 % (0-4.4); Hematocrit 37.9 % (37.0-47.0); Hemoglobin 11.9 g/dL (12.0-15.0); Immature Granulocyte Absolute 0.02 K/mm3 (0.00-0.031); Immature Granulocyte Percent A 0.3 % (0-0.5); Lymphocytes Absolute Auto 2.31 K/mm3 (0.9-3.2); Lymphocytes Percent Auto 39.6 % (18.3-44.2); Mean Corpuscular HGB Conc 31.4 g/dl (32-36); Mean Corpuscular Hemoglobin 31.2 pg (26-34); Mean Corpuscular Volume 99.5 fl (80-100); Mean Platelet Volume 11.4 fl (7.4-10.4); Monocytes Absolute Auto 0.6 K/mm3 (0.1-0.6); Monocytes Percent Auto 9.4 % (2.6-8.5); Neutrophils Absolute Auto 2.8 K/mm3 (1.3-6.7); Neutrophils Percent Auto 48.3 % (45.5-73.1); Platelet Count Result 225 k/mm3 (150-375); Red Blood Count 3.81 M/mm3 (4.2-5.4); Red Cell Distribution Width 13.8 % (11.5-14.5); White Blood Count 5.8 K/mm3 (4.5-10.0)
[2023-05-15 06:27] LABS: Alanine Aminotransferase 13 U/L (6-35); Albumin Level 3.7 g/dL (3.5-5.1); Alkaline Phosphatase 52 U/L (38-126); Anion Gap 4 mmol/L (8-16); Aspartate Amino Transferase 16 U/L (14-36); Bilirubin,Total 0.7 mg/dL (0.2-1.3); Blood Urea Nitrogen 6 mg/dL (7-17); Calcium 8.7 mg/dL (8.4-10.2); Carbon Dioxide 27 mmol/L (22-30); Chloride 107 mmol/L (98-107); Estimated CRCL calculation 77 ml/min; Estimated Glomerular Filt Rate > 60; Glucose 79 mg/dL (65-110); Potassium 4.1 mmol/L (3.4-5.0); Sodium 138 mmol/L (137-145)
--- NOTE | 2023-05-15 10:50 | PM.DS ---
DS: Admitting Diagnosis Discharge Date 05/15/23 Admitting Diagnosis UTI DS: Discharge Diagnosis Discharge Diagnosis (1) Urinary tract infection: Code(s): N39.0 - Urinary tract infection, site not specified Status: Acute (2) Dehydration: Code(s): E86.0 - Dehydration Status: Acute DS: Summary Hospital Course Hospital Course: This is a [age]-year-old female with insignificant past medical history presents to the ED due to dysuria, nausea, vomiting and back pain. Patient had recently had a UTI and had been treated with p.o. antibiotics couple weeks prior. She was found to have a white blood cell count of 20.8. Urine with 3+ blood, 3+ leukocyte esterase and greater than 100 rbc's and wbc's with 4+ bacteria. CT abdomen pelvis showed diffuse bladder wall thickening suspicious for cystitis. She was started on Rocephin. Urine culture came back positive for Staphylococcus saprophyticus and she was transitioned to Levaquin. Her white blood cell count has come back within normal range. She states that her dysuria, nausea and back pain have all resolved. Labs and vital signs are stable she is medically clear for discharge at this time. Time Spent with Patient Time attestation: Total time spent providing and/or coordinating discharge services: Exam Narrative: GENERAL: Comfortable, no acute distress HENMT: moist mucous membranes EYES: EOM intact b/l NECK: no lymphadenopathy RESPIRATORY: clear to auscultation CARDIO: RRR GI: soft, nontender, bowel sounds present SKIN: no rashes EXTREMITIES: no edema, redness or tenderness DS: Data Data Completed and Pending Labs on day of discharge: Labs from last 24 hours 05/15/23 05:34 WBC 5.8 RBC 3.81 L Hgb 11.9 L Hct 37.9 MCV 99.5 MCH 31.2 MCHC 31.4 L RDW 13.8 Plt Count 225 MPV 11.4 H Immature Gran % (Auto) 0.3 Neut % (Auto) 48.3 Lymph % (Auto) 39.6 [place] % (Auto) 9.4 H Eos % (Auto) 1.7 Baso % (Auto) 0.7 Lymph # (Auto) 2.31 [place] # (Auto) 0.6 Eos # (Auto) 0.1 Baso # (Auto) 0.0 Abs Immat Gran (auto) 0.02 Absolute Neuts (auto) 2.8 Absolute Nucleated RBC 0.0 Nucleated RBC % 0.0 Sodium 138 Potassium 4.1 Chloride 107 Carbon Dioxide 27 Anion Gap 4 L BUN 6 L Creatinine 0.70 Estim Creat Clear Calc 77 Estimated GFR > 60 Glucose 79 Calcium 8.7 Total Bilirubin 0.7 AST 16 ALT 13 Alkaline Phosphatase 52 Total Protein 6.0 L Albumin 3.7 Preliminary micro results at discharge 05/13/23 22:41 Blood Culture - Preliminary Blood 05/13/23 22:41 Blood Culture - Preliminary Blood Discharge Plan Discharge Attending physician on discharge: Siva Lindsey Consulting providers: Alexi Carroll Discharging Clinician: Galilea Vela Patient Disposition: Home, Self-Care Activity: as tolerated Diet: regular Discharge Instructions: Levaquin 750 mg daily. Take 1st dose tonight. Take all medications as prescribed even if feeling better Eat well balanced meals and stay hydrated Keep active to remain strong Urinate after any sexual activity Stay hydrated Use protection department despite of STDs Trend urine output If you should experience any chest pain, shortness of breath, temps >100.4 or any other worrisome symptoms please follow up with your PCP come back to the hospital Follow up with your primary in 2-3 weeks It has been a pleasure taking care of you thank you for using our services Patient Instructions: Antibiotic Form Stand Alone Forms: General Discharge Information Follow-up/Referrals: PHYSICIAN,ROAD MAKER [Primary Care Provider] - Discharge Medications: New levofloxacin 750 mg tablet 750 mg PO DAILY Qty: 3 0RF No Action No Home Medications Date of admission: 05/13/23 21:16 Primary Care Provider: PHYSICIAN,ROAD MAKER Admitting Provider: Christian Garcia Attending physician on admission: Christian Garcia Condition: Stable
== END 2023-05-15 11:45 | disposition home or self-care (01) ==
LOC: ANHED 20:14 → ANH3MED 05-15 07:06
PROVIDERS: Internal Medicine Critical Care Medicine; Physician Assistant; Admitting Provider Internal Medicine; Emergency Provider Emergency Medicine; Visit Provider Internal Medicine
DX: N39.0 Urinary tract infection, site not specified (principal); B95.7 Other staphylococcus as the cause of diseases classified elsewhere; E86.0 Dehydration; D72.829 Elevated white blood cell count, unspecified; E87.1 Hypo-osmolality and hyponatremia; F10.90 Alcohol use, unspecified, uncomplicated
CPT/HCPCS: 36415; 74177; 80048; 80053; 81001; 81025; 83690; 83735; 85025; 87040; 87077; 87086; 87088; 96361; 96365; 96374; 96375; 96376; 99285; G0378; J0696; J2270; J2405; J7030; Q9967

== ENCOUNTER 2024-01-04 10:08 | Emergency (ER) | payer BC, OTHER, SELFPAY ==
--- NOTE | 2024-01-04 10:12 | ED.FEMALEGU ---
HPI - Female Genitourinary General Chief complaint: Urogenital-Female Stated complaint: VAGINAL IRRITATION/DISCHARGE Time Seen by Provider: 01/04/24 10:25 Source: patient, RN notes reviewed and old records reviewed Mode of arrival: ambulatory Limitations: no limitations History of Present Illness HPI Narrative: 23-year-old female presents to the [facility] with concerns for vaginal issues. Patient states for the last 2 days she has had vaginal discharge, irritation, painful intercourse. Last menstrual period was 08 November 2023. Thought she was skipping a month on her. States that is normal for her. Denies any urinary symptoms. No frequency urgency or burning. Denies any abdominal pain or CVA tenderness. Denies fevers. Reports thick cottage cheese like discharge with no odor Onset (ago): day(s) (2) Related Data Allergies Allergy/AdvReac Type Severity Reaction Status Date / Time No Known Allergies Allergy Verified 05/14/23 00:43 Review of Systems Review of Systems: All systems reviewed & are unremarkable except as noted in HPI and below Constitutional: Constitutional: Reports no additional constitutional complaints Eyes: Eyes: Reports no additional eye complaints ENT: Reports system reviewed and no additional complaints, except as documented Cardiovascular: Cardiovascular: Reports no additional cardiovascular complaints, Denies chest pain and Denies dyspnea Respiratory: Respiratory: Reports no additional respiratory complaints, Denies chest congestion, Denies cough and Denies dyspnea Gastrointestinal: Gastrointestinal: Reports no additional gastrointestinal complaints, Denies abdominal pain, Denies nausea and Denies vomiting Genitourinary: Genitourinary: Reports as per HPI, Denies dysuria, Reports vaginal discharge and Reports vaginal pruritus Musculoskeletal: Musculoskeletal: Reports no additional musculoskeletal complaints Integumentary/Breasts: Skin/Breast: Reports system reviewed and no additional complaints, except as docu Neurologic: Reports system reviewed and no additional complaints, except as documented Psychiatric: Psychiatric: Reports no additional psychiatric complaints Allergic/Immunologic: Allergic/Immunologic: Reports no additional allergic/immunologic complaints PMFSH Past Medical History Medical History No significant medical problems Surgical History Surgical History No history of previous surgery Family History Family History Other Family history non-contributory Social History Social History Social History: Surrogate medical decision maker: Clarisse Beverly, mother. Code status: Full code. Smoking status: Never smoker Alcohol intake: current Drinks per week: 1 Alcohol use details: Social alcohol use in moderation. Substance use: never Lack of Transportation: No Lack of Food: Never True Current Housing: I Have Housing Concerned About Future Housing: No Difficulty Paying Gas/Electric Bills: No Difficulty Paying for Meds: No Currently Unemployed: No Education: Associate Degree Difficulty w/ Childcare or Family Care: No Additional occupation/education comments: Works at [employer]. Spiritual care concerns: No Comments At the time of my signature, I reviewed and agree with the nursing past medical, surgical, social, and family history. There is no relevant family history pertinent to the patient complaint. Exam Const: General: cooperative, healthy appearing, comfortable, no acute distress, well developed, alert and well nourished Nutritional Appearance: well nourished Orientation/consciousness: patient oriented x3 Limitations: no limitations HENMT: Head: normal to inspection Ears: hearing grossly normal bilaterally and ex
[2024-01-04 10:20] VITALS: BP 123/73; PULSE 111; RESP 16; TEMP 37.4; O2SAT 100
[2024-01-04 20:58] LABS: Trichomonas Vag PCR NOT DETECTED (NOT DETECTE)
[2024-01-04 21:21] LABS: Chlamydia trachomatis NOT DETECTED (NOT DETECTE); Neisseria gonorrhoeae PCR NOT DETECTED (NOT DETECTE)
[2024-01-06 18:02] LABS: Bacterial Vaginosis NEGATIVE (NEGATIVE)
== END 2024-01-04 11:03 | disposition home or self-care (01) ==
PROVIDERS: Emergency Provider Nurse Practitioner
DX: O23.599 Infection of other part of genital tract in pregnancy, unspecified trimester (principal); B37.31 Acute candidiasis of vulva and vagina; Z20.2 Contact with and (suspected) exposure to infections with a predominantly sexual mode of transmission
CPT/HCPCS: 81003; 81025; 81513; 87070; 87086; 87491; 87591; 87661; 99214; G0463

== ENCOUNTER 2024-01-25 07:41 | Outpatient (CLI) | payer BC, OTHER, SELFPAY ==
--- NOTE | ~2024-01-25 | US_ITS ---
FIRST TRIMESTER ULTRASOUND 01/25/2024 8:00 CDT Ordering provider: Dana Caldera APRN History: . N91.2 - Amenorrhea, unspecified . Comparison: None. FINDINGS: Baby A: 8 weeks and 1 day. INTRAUTERINE GESTATIONAL SAC: Present. YOLK SAC: Present. Measures 0.5 5.2 cm. POLE: Present. Measures 1.7 cm. heart rate: 1 69 bpm. Baby B: 8 weeks. INTRAUTERINE GESTATIONAL SAC: Present. YOLK SAC: Present. Measures 0.6 5.5 cm. POLE: Present. Measures 1.6 cm. heart rate: 1 61 bpm. UTERUS: The uterus measures 9.2x 6.4x 7.6 cm. in length which is within normal limits. No myometrial masses. FREE FLUID: None. OVARIES: Normal in size with the right measuring 2.6x 2.2x 1.8 cm and the left measuring 2.6x 1.5x 2. 4 cm. Doppler flow is demonstrated within both ovaries. ADNEXAL MASSES: None. IMPRESSION: Twin with 2 separate sacs. Gestational age is 8 weeks and 1 day. Reviewed, dictated and finalized at location A.
== END 2024-01-25 07:42 | disposition home or self-care (01) ==
PROVIDERS: PCP Emergency Medicine; Visit Provider Nurse Practitioner Obstetrics & Gynecology
DX: N91.2 Amenorrhea, unspecified (principal)
CPT/HCPCS: 76801; 76817

== ENCOUNTER 2024-05-22 12:50 | Outpatient (CLI) | payer BC, OTHER, SELFPAY ==
--- NOTE | ~2024-05-22 | US_ITS ---
EXAMINATION: US OB limited DATE: 05/22/2024 16:16 CDT INDICATION: Variable decelerations COMPARISON: 01/25/2024 TECHNIQUE: Real-time transabdominal obstetric ultrasound. FINDINGS: Estimated date of delivery by last menstrual period is 09/04/2024 The cervix measures 4.7 cm and is closed. Soft tissues of the cervix are heterogeneous in echogenicit y suggesting edema. Baby A: Intrauterine gestation is identified in longitudinal lie and in vertex presentation with the placenta anteriorly located. cardiac activity is identified at a rate of 143 bpm (ranging from 1 35-1 63). Amniotic fluid index measures 16.7 cm (normal range is from 9.7 to 22.1 cm) Baby B: No cardiac activity is detected, consistent with patient's history. IMPRESSION: Baby A represents an intrauterine gestation in longitudinal lie and in vertex presentation, with feta l cardiac activity identified. The cervix is closed, but is heterogeneous in echogenicity, possibly representing edema. Reviewed, dictated and finalized at location A. IMPRESSION: Baby A represents an intrauterine gestation in longitudinal lie and in vertex p resentation, with cardiac activity identified. The cervix is closed, but is heterogeneous in echogenicity, possibly representi ng edema.
[2024-05-22 13:45] VITALS: BP 109/58; PULSE 99
[2024-05-22 13:45] LABS: Add Urine Microscopic? YES; Appearance Urine Clear (Clear); Bacteria Urine None Seen /hpf; Bilirubin Urine Negative (Negative); Blood Urine Negative (Negative); Color Urine Yellow (Yellow); Glucose Urine UA Negative (Negative); Ketones Urine Negative (Negative); Leukocyte Esterase Ur 2+ LEU/UL (Negative); Nitrate Urine Negative (Negative); Non Pathogenic Casts 0-2; Protein Urine Negative (Negative); RBC Urine 0-2 /hpf (0-2); Specific Grav Ur 1.005 (1.001-1.035); Squamous Epithelial Cell Urine None Seen /hpf (Few); Urobilinogen Urine 0.2 mg/dL (<2.0); pH Urine 5.5 (5.0-9.0)
[2024-05-22 14:24] VITALS: BP 109/58; PULSE 95
[2024-05-22 14:55] LABS: Hematocrit 33.8 % (37.0-47.0); Hemoglobin 11.1 g/dL (12.0-15.0); Mean Corpuscular HGB Conc 32.8 g/dl (32-36); Mean Corpuscular Volume 100.6 fl (80-100); Mean Platelet Volume 10.5 fl (7.4-10.4); Platelet Count Result 300 k/mm3 (150-375); Red Blood Count 3.36 M/mm3 (4.2-5.4); Red Cell Distribution Width 14.3 % (11.5-14.5); White Blood Count 14.8 K/mm3 (4.5-10.0)
[2024-05-22 15:05] LABS: Glucose 1 Hour PP 50gm Dose 99 mg/dL
--- NOTE | 2024-05-22 15:24 | PC.NURSE ---
Dr. Bradford returned call and informed ROM plus was negative, given UA results- it did reflex to a culture, 28 wk labs were done- 1 hr glucola was 99. informed baby had some 15 beat accels, but also had a couple of variable decels- 1 lasted a minute with suman down to 120 and then several 10-15 sec drops in FHR to 120's. MD reviewed tracing electronically and ordered an CLAUDIA. Pt can be discharged to home if CLAUDIA is 10 or greater.
[2024-05-22 15:44] LABS: HIV 1/2 Ab P24 Ag Result Negative (Negative)
--- NOTE | 2024-05-22 16:18 | PC.NURSE ---
Dr. Bradford informed CLAUDIA is 16.7 cm and requesting a prescription for a vaginal yeast infection. MD will call in a script for a vaginal cream.
[2024-05-22 17:08] LABS: OBXCEM ROM Plus Negative (Negative)
[2024-05-23 14:21] LABS: Rapid Plasma Reagin Non-Reactive (NonReactive)
== END 2024-05-22 16:20 | disposition home or self-care (01) ==
LOC: ANHOBOP 13:00 → ANHOBPP 13:00
PROVIDERS: Visit Provider Obstetrics & Gynecology
DX: O42.90 Premature rupture of membranes, unspecified as to length of time between rupture and onset of labor, unspecified weeks of gestation (principal); Z3A.00 Weeks of gestation of pregnancy not specified
CPT/HCPCS: 36415; 59025; 76815; 81001; 82947; 84112; 85027; 86592; 86703; 86850; 86900; 86901; 87086; 99199; G0432

== ENCOUNTER 2024-05-30 20:13 | Outpatient (RCR) | payer BC, OTHER, SELFPAY ==
[2024-05-30 21:23] LABS: Add Urine Microscopic? YES; Appearance Urine Clear (Clear); Bacteria Urine None Seen /hpf; Bilirubin Urine Negative (Negative); Blood Urine Negative (Negative); Color Urine Yellow (Yellow); Glucose Urine UA Negative (Negative); Ketones Urine Negative (Negative); Leukocyte Esterase Ur 2+ LEU/UL (Negative); Nitrate Urine Negative (Negative); Non Pathogenic Casts 0-2; Protein Urine Negative (Negative); RBC Urine 0-2 /hpf (0-2); Specific Grav Ur 1.006 (1.001-1.035); Squamous Epithelial Cell Urine Few /hpf (Few); Urobilinogen Urine 0.2 mg/dL (<2.0); pH Urine 6.5 (5.0-9.0)
--- NOTE | 2024-05-30 21:34 | PC.NURSE ---
Call placed to Dr. Bradford. Pt c/o of decreased movement noted and bladder pressure with frequent urination. FHR and CTX reported. PT feeling movement. Order for Macrobid 100 mg q12 for 5 days. D/C pt home with orders to follow up on normal schedule OB appt.
[2024-05-30 21:44] VITALS: BP 122/74; PULSE 84
--- NOTE | 2024-05-30 21:47 | PC.NURSE ---
Discussed standard labor precautions with pt and antibiotics. Pt stated understanding, denies any questions or concerns. Pt ambulated out of department in undelivered in stable condition with S.O and all belongings.
== END 2024-08-29 23:59 | disposition home or self-care (01) ==
LOC: ANHOBOP 20:13
PROVIDERS: Visit Provider Obstetrics & Gynecology
DX: O36.8120 Decreased fetal movements, second trimester, not applicable or unspecified (principal); Z3A.26 26 weeks gestation of pregnancy
CPT/HCPCS: 59025; 81001; 87086

== ENCOUNTER 2024-06-12 15:09 | Outpatient (CLI) | payer BC, OTHER, SELFPAY ==
--- NOTE | ~2024-06-12 | US_ITS ---
EXAMINATION: US OB limited DATE: 06/12/2024 17:34 PURCHASE ORDER CHECKER INDICATION: Leaking fluid, CLAUDIA requested TECHNIQUE: Real-time transabdominal obstetric ultrasound. FINDINGS: There is a single intrauterine gestation in breech presentation. The placenta is anterior without pl acenta previa. cardiac activity is noted with a rate of 157 beats per minute. Amniotic fluid index measures 14.3 cm (normal range is from 9.4 - 22.8). An additional gestation is present, which is disfigured, and without cardiac activity (consistent wit h patient's history). IMPRESSION: Single intrauterine gestation in breech presentation. CLAUDIA is within normal limits Reviewed, dictated and finalized at location A. HASE ORDER CHECKER
[2024-06-12 15:45] VITALS: BP 110/69; PULSE 86
[2024-06-12 16:00] VITALS: BP 117/65; PULSE 83
[2024-06-12 16:15] VITALS: BP 126/82; PULSE 105
[2024-06-12 16:30] VITALS: BP 117/66; PULSE 108
[2024-06-12 16:45] VITALS: BP 128/71; PULSE 109
[2024-06-12 17:07] LABS: OBXCEM ROM Plus Negative (Negative)
[2024-06-12 17:52] VITALS: BP 110/69; PULSE 86
== END 2024-06-12 17:57 ==
LOC: ANHOBOP 15:18 → ANHOBPP 15:20
PROVIDERS: Visit Provider Obstetrics & Gynecology
DX: O42.90 Premature rupture of membranes, unspecified as to length of time between rupture and onset of labor, unspecified weeks of gestation (principal); Z3A.00 Weeks of gestation of pregnancy not specified
CPT/HCPCS: 59025; 76815; 84112; 99199

== ENCOUNTER 2024-07-06 09:18 | Observation (INO) | payer BC, OTHER, SELFPAY ==
[2024-07-06 10:00] VITALS: BP 126/75; PULSE 97
[2024-07-06 10:30] VITALS: BP 121/60; PULSE 96
[2024-07-06 10:34] LABS: Add Urine Microscopic? YES; Appearance Urine Clear (Clear); Bacteria Urine 2+ /hpf; Bilirubin Urine Negative (Negative); Blood Urine Negative (Negative); Color Urine Yellow (Yellow); Glucose Urine UA Negative (Negative); Ketones Urine Negative (Negative); Leukocyte Esterase Ur 3+ LEU/UL (Negative); Nitrate Urine Negative (Negative); Non Pathogenic Casts 0-2; Protein Urine Negative (Negative); RBC Urine 0-2 /hpf (0-2); Squamous Epithelial Cell Urine Occasional /hpf (Few); Urobilinogen Urine 0.2 mg/dL (<2.0); WBC Urine 51-100 /hpf (0-3); pH Urine 6.5 (5.0-9.0)
[2024-07-06 10:45] VITALS: BP 114/68; PULSE 91
[2024-07-06 11:00] VITALS: BP 121/72; PULSE 96; TEMP 36.6
--- NOTE | 2024-07-08 08:54 | PM.OBTRLD ---
OB - Triage/Final Diagnosis Visit Information Reason for evaluation: threatened labor Comments/Additional reasons for admission: I have assessed the risk for this patient, Lupe Art, and determined that she would benefit from observation care. Evaluation Laboratory results: Laboratory Tests 07/06/24 10:16 Urine Color Yellow Urine Appearance Clear Urine pH 6.5 Ur Specific [place] 1.020 Urine Protein Negative Urine Glucose (UA) Negative Urine Ketones Negative Ur Blood (Man) Negative Urine Nitrate Negative Urine Bilirubin Negative Urine Urobilinogen 0.2 Leukocyte Esterase Rfl 3+ H Urine RBC 0-2 Urine WBC 51-100 H Ur Squamous Epith Cells Occasional Urine Bacteria 2+ H Urine Casts 0-2
== END 2024-07-06 11:50 | disposition home or self-care (01) ==
PROVIDERS: Admitting Provider Obstetrics & Gynecology; Visit Provider Obstetrics & Gynecology
DX: O47.03 False labor before 37 completed weeks of gestation, third trimester (principal)
CPT/HCPCS: 81001; 87086; G0378; G0379

== ENCOUNTER 2024-07-18 16:58 | Outpatient (CLI) | payer BC, OTHER, SELFPAY ==
[2024-07-18 17:19] LABS: Basophils Absolute Auto 0.1 K/mm3 (0.0-0.1); Basophils Percent Auto 0.3 % (0.2-1.2); Eosinophils Absolute Auto 0.2 K/mm3 (0-0.3); Eosinophils Percent Auto 0.9 % (0-4.4); Hematocrit 40.1 % (37.0-47.0); Hemoglobin 13.7 g/dL (12.0-15.0); Immature Granulocyte Absolute 0.29 K/mm3 (0.00-0.031); Immature Granulocyte Percent A 1.7 % (0-0.5); Lymphocytes Absolute Auto 1.64 K/mm3 (0.9-3.2); Lymphocytes Percent Auto 9.7 % (18.3-44.2); Mean Corpuscular HGB Conc 34.2 g/dl (32-36); Mean Corpuscular Hemoglobin 33.1 pg (26-34); Mean Corpuscular Volume 96.9 fl (80-100); Mean Platelet Volume 10.5 fl (7.4-10.4); Monocytes Absolute Auto 1.1 K/mm3 (0.1-0.6); Monocytes Percent Auto 6.6 % (2.6-8.5); Neutrophils Absolute Auto 13.6 K/mm3 (1.3-6.7); Neutrophils Percent Auto 80.8 % (45.5-73.1); Platelet Count Result 257 k/mm3 (150-375); Red Blood Count 4.14 M/mm3 (4.2-5.4); Red Cell Distribution Width 13.1 % (11.5-14.5); White Blood Count 16.9 K/mm3 (4.5-10.0)
[2024-07-18 18:26] LABS: HIV 1/2 Ab P24 Ag Result Negative (Negative)
[2024-07-19 13:49] LABS: Rapid Plasma Reagin Non-Reactive (NonReactive)
== END 2024-07-18 16:59 | disposition home or self-care (01) ==
LOC: ANHLAB 17:00
PROVIDERS: Visit Provider Obstetrics & Gynecology
DX: Z34.90 Encounter for supervision of normal pregnancy, unspecified, unspecified trimester (principal); Z3A.00 Weeks of gestation of pregnancy not specified
CPT/HCPCS: 36415; 85025; 86592; 86703; G0432

== ENCOUNTER 2024-08-21 11:54 | Outpatient (CLI) | payer BC, OTHER, SELFPAY ==
[2024-08-21] MEDS: TERBUTALINE SULFATE 1 MG/ML VIAL 0.25 MG SUB-Q (12:45)
[2024-08-21 13:15] VITALS: BP 138/80; PULSE 102
[2024-08-21 13:30] VITALS: BP 120/57; PULSE 123
[2024-08-21 13:45] VITALS: BP 114/64; PULSE 103
[2024-08-21 14:00] VITALS: BP 113/60; PULSE 108
[2024-08-21 14:31] VITALS: BP 120/57; PULSE 90
--- NOTE | 2024-08-22 09:01 | W.PM.PROC2 ---
Procedure Note - Detailed Date of Procedure 08/22/24 Pre-op Diagnosis Breech presentation Post-op Diagnosis Other (Failed external cephalic version) Procedure Performed External cephalic version Surgeon Junior Bradford MD Anesthesia None Indications Breech presentation Findings Reactive NST. Ultrasound showed nikki breech presentation prior to ECV attempt and afterwards. Description of Procedure Reactive NST. Ultrasound showed nikki breech presentation. Patient counseled regarding risk and benefits of procedure to include pain, failure to convert to cephalic, distress, rupture of membranes, labor, risk of emergency section. She had been informed previously of higher success rate if epidural and she declined epidural/spinal anesthesia. She received .25mg SQ and placed in mild trendelenburg position. While viewing position and heart rate with ultrasound the version was attempted. First and second attempt the head rotated to mid right position and then return to breech, attempted version in other direction which rotated to mid left and return. Patient did not tolerate pressure at the lower abdomen at heart rate was assessed during and between attempts and no bradycardia. Version not successful. Discussed need for primary section. Discussed risk of previously when she was given option of schedule for breech attempted version. She agrees with scheduling section between 39-40 weeks. Discussed labor precautions and kick count precautions. Estimated Blood Loss 0 Drains No Packing No Pathology None sent Complications No immediate complications Condition Stable Disposition Floor [facility] Billing Surgery - Charge Forward: Surgery Billing
== END 2024-08-21 14:20 | disposition home or self-care (01) ==
LOC: ANHOBOP 12:00 → ANHOBPP 12:03
PROVIDERS: Visit Provider Obstetrics & Gynecology
DX: O32.1XX0 Maternal care for breech presentation, not applicable or unspecified (principal); Z3A.00 Weeks of gestation of pregnancy not specified
CPT/HCPCS: 59025; J3105

== ENCOUNTER 2024-09-03 05:49 | Inpatient (IN) | payer BC, OTHER, SELFPAY ==
[2024-09-03] VITALS (39 sets, daily range): BP systolic 120–152; BP diastolic 61–117; PULSE 78–182; RESP 13–23; TEMP 36.5–37.5; O2SAT 97–100; BMI 35.2
--- OUTSIDE RECORDS SUMMARY | 2024-09-03 00:34 | XMS_ITS | Clinical Summary ---
Author Organization [facility] Address [address] [place] [address] Phone Care Team Providers Care Lozenge Maker Helper Name Role Phone Unavailable Primary Care Provider Unavailabl e Active Problems Problem Noted Date Diagnosed Date Continuing after i ntrauterine of one twin with intrauterine retention 05/07/2024 Dichorionic diamniotic twin in second trimester 05/07/2024 Encounters Date Type Department Care Team Description 08/27/2024 External Device Data STL ABSTRACTION Provider, Abstract 08/06/2024 2:30 PM DIRECTOR OF MEDICAL EDUCATION - 08/06/2024 11:59 PM DIRECTOR OF MEDICAL EDUCATION Hospital Encounter [facility] Remy De La [address] [place] [address] Maritza Coughlin MD Discharge Disposition: Home or Self Care 07/04/2024 2:10 PM DIRECTOR OF MEDICAL EDUCATION - 07/04/2024 11:59 PM DIRECTOR OF MEDICAL EDUCATION Hospital Encounter [facility] Remy De La [address] [place] [address] Susanne Salazar MD Discharge Disposition: Home or Self Care 06/04/2024 12:45 PM DIRECTOR OF MEDICAL EDUCATION - 06/04/2024 11:59 PM [facility] Hospital Encounter [facility] Floor [address] [facility] [address] [place] [address] Susanne Salazar MD Discharge Disposition: Home or Self Care from Last 3 Months Social History Tobacco Use Types Packs/Day Years Used Date Smoking Tobacco: Never Assessed Comments Unknown Sex and Gender Information Value Date Recorded Sex Assigned at Not on file Legal Sex Female 8:56 AM CDT Gender Identity Not on file Sexual Orientation Not on file Last Filed Vital Signs Vital Sign Reading Time Taken Comments Blood Pressure 137/81 05/07/2024 3:28 PM CDT Pulse 93 05/07/2024 3:28 PM CDT Temperature - - Respiratory Rate - - Oxygen Saturation - - Inhaled Oxygen Concentration - - Weight 62.6 kg (138 lb) 05/07/2024 3:28 PM CDT Height 154.9 cm (5' 1 ) 05/07/2024 3:28 PM CDT Body Mass Index 26.07 05/07/2024 3:28 PM CDT Plan of Treatment Health Maintenance Due Date Last Done Comments HPV VACCINES (1 - 3-dose series) 10/28/2014 DTAP/TDAP/TD VACCINES (1 - Tdap) 10/28/2018 HEPATITIS B VACCINES (1 of 3 - 19+ 3-dose series) 10/28/2018 CERVICAL CANCER SCREENING 10/28/2020 INFLUENZA VACCINE (#1) 2024 PNEUMOCOCCAL VACCINE 0-64 YEARS Aged Out No longer eligible based on patient's age to complete this topic Procedures Procedure Name Priority Date/Time Associated Diagnosis Comments US OB FOLLOW UP PER FETUS Routine 08/06/2024 3:09 PM DIRECTOR OF MEDICAL EDUCATION Follow-up exam US OB FOLLOW UP PER FETUS Routine 07/04/2024 3:03 PM DIRECTOR OF MEDICAL EDUCATION Follow-up exam US OB FOLLOW UP PER FETUS Routine 06/04/2024 1:40 PM DIRECTOR OF MEDICAL EDUCATION Twin with single intrauterine in second trimester, single or unspecified fetus Encounter for ultrasound to assess growth from Last 3 Months Results * US OB FOLLOW UP PER FETUS (08/06/2024 3:09 PM DIRECTOR OF MEDICAL EDUCATION) Only the most recent of3 resultswithin the time period is included. Anatomical Region Laterality Modality Pelvis Ultrasound 08/06/2024 2:50 PM DIRECTOR OF MEDICAL EDUCATION Narrative 08/06/2024 3:15 PM DIRECTOR OF MEDICAL EDUCATION STL FOLLOW UP ----- Pat. Name: MARINE ART Study Date: 08/06/2024 2:50pm Pat. NO: [id number] Referring ??MD: WILBER DOCKERY MD Site: [facility] Protective Service: Jocelyn Saldaña RDMS : 2000 Age: 23 ----- INDICATION ----- Screening Follow-Up Twin , Loss of 1 Fetus ?Twin B CODING ----- Diagnoses ? Z3A.35: Weeks of gestation ?O31.13X0: Continuing after spontaneous of one fetus or more ?Z36.2: Encounter for other screening follow-up ?Z3A.35: Weeks of gestation ?O31.13X0: Continuing after spontaneous of one fetus or more Procedures ?65988: Ultrasound, uterus, real time with image documentation, follow up, transabdominal ?approach per fetus HISTORY ----- OB History ? 1. Para 0 METHOD ----- Transabdominal ultrasound examination ----- Smith . Number of fetuses: 1 DATING ----- LMP on: 11/08/2023 GA by LMP 38 w + 6 d DOROTHY by LMP: 08/14/2024 Prior assessment by: First US Study GA by prior assessment 35 w + 6 d DOROTHY by prior assessment: 09/04/2024 Previous Ultrasound on: 01/25/2024 Type of prior assessment: CRL U/S measurement at prior assessment date 17.0 mm GA by previous U/S 35 w + 6 d DOROTHY by previous Ultrasound: 09/04/2024 Ultrasound examination on: 08/06/2024 GA by U/S based upon: AC, BPD, EFW, Femur, HC GA by U/S 34 w + 6 d DOROTHY by U/S: 09/11/2024 Method of dating: Restore dating from previous exam Assigned: based on ultrasound (CRL), selected on 06/04/2024 Assigned GA 35 w + 6 d Assigned DOROTHY: 09/04/2024 BIOMETRY ----- BPD ?82.9 ? mm ?33w 2d ?4% ?Hadlock OFD ?114.2 ?mm ?39w 1d ?91% ?Puneet HC ? 315.6 ?mm ?35w 3d ?13% ?Hadlock AC ? 318.4 ?mm ?35w 5d ?57% ?Hadlock Femur ?67.4 ? mm ?34w 5d ?17% ?Hadlock HC / AC ?0.99 ? 30% ?Nicolaides Weight Calculation: EFW ? 2,612 ? g ? 35w 1d ?32% ?Hadlock EFW (lb,oz) ? 5 lb 12 ? oz EFW by ?Hadlock ([id number]) Head / Face / Neck Biometry: Health And Wellness Coordinator ? 5.1 ? mm Extremities / Bony Struc Biometry: FL / BPD ?0.81 FL / HC ? 0.21 FL / AC ? 0.21 GENERAL EVALUATION ----- Cardiac activity present. FHR 134 bpm. movements: present. Presentation: breech Placenta: Placental site: anterior Umbilical cord: Cord vessels: 3 vessel cord. Insertion site: placental insertion: normal Amniotic fluid: Amount of AF: normal amount. MVP 5.4 cm. CLAUDIA 11.6 cm. Q1 3.2 cm, Q2 3.1 cm, Q3 5.4 cm, Q4 0.0 cm ANATOMY ----- The following structures appear normal: Head / Neck ? Cranium. Lateral ventricles. Cavum septi pellucidi. Heart / Thorax ?Diaphragm. Abdomen ? Stomach. Kidneys. Bladder. sex: female. GROWTH OVERVIEW ----- Exam date ?GA ?BPD (mm) ? HC (mm) ?AC (mm) ? FL (mm) ?HL (mm) ?EFW (g) 05/07/2024 ?22w 6d ?57.8 ?77% ?207.8 ? 36% ?187.5 ?64% ?40.2 ?43% ?38.0 ?57% ?578 ?62% 06/04/2024 ?26w 6d ?65.4 ?24% ?258.3 ? 64% ?228.7 ?54% ?49.9 ?35% ? 1,032 ? 49% 07/04/2024 ?31w 1d ?73.9 ?6% ? 291.5 ? 40% ?270.1 ?46% ?58.1 ?17% ? 1,653 ? 30% 08/06/2024 ?35w 6d ?82.9 ?4% ? 315.6 ? 13% ?318.4 ?57% ?67.4 ?17% ? 2,612 ? 32% COMMENT ----- Patient's name and date of were verified by the electric power line examiner prior to the exam IMPRESSION ----- 1. Single living fetus with a gestational age of 35w 6d, based on the reported clinical dates. 2. Current growth parameters are consistent with the stated EDC. The size is appropriate for gestational age at 32% percentile (2612 g). 3. Unremarkable limited anatomy noted. A detailed anatomy cannot be performed secondary to advanced gestational age. However, there are no gross structural abnormalities noted. 4. The amniotic fluid is normal for gestational age (MVP:5.4 cm , CLAUDIA:11.6 cm ). 5. Anterior placenta. No previa/not low-lying. 6. Breech presentation. Recommendations: - Further imaging as indicated. Thank you for allowing us to participate in the care of this patient. Procedure Note Judit Thao MD - 08/06/2024 STL FOLLOW UP ----- Pat. Name:Amado ART Date:08/06/2024 2:50pm Pat. NO: [id number] MD:WILBER DOCKERY [facility]oc[facility] Salda[facility] RDMS :2000Age:23 ----- INDICATION ----- Screening Follow-Up Twin , Loss of 1 Fetus Twin B CODING ----- Diagnoses Z3A.35: Weeks of gestation O31.13X0: Continuing after spontaneousabortion of one fetus or more Z36.2: Encounter for other screeningfollow-up Z3A.35: Weeks of gestation O31.13X0: Continuing after spontaneousabortion of one fetus or more Procedures [id number]: Ultrasound, uterus, real time withimage documentation, follow up, transabdominal approach per fetus HISTORY ----- OB History 1. Para 0 METHOD ----- Transabdominal ultrasound examination ----- Smith . Number of fetuses: 1 DATING ----- LMP on:11/08/2023 GA by LMP38 w + 6 d DOROTHY by LMP:08/14/2024 Prior assessment by:First US Study GA by prior [id number] w + 6 d DOROTHY by prior assessment:09/04/2024 Previous Ultrasound on:01/25/2024 Type of prior assessment:CRL U/S measurement at prior assessment date17.0 mm GA by previous U/S35 w + 6 d DOROTHY by previous Ultrasound:09/04/2024 Ultrasound examination on:08/06/2024 GA by U/S based upon:AC, BPD, EFW, Femur, HC GA by U/S34 w + 6 d DOROTHY by U/S:09/11/2024 Method of dating:Restore dating from previous exam Assigned:based on ultrasound (CRL), selected on 06/04/2024 Assigned GA35 w + 6 d Assigned DOROTHY:09/04/2024 BIOMETRY ----- BPD 82.9 mm 33w 2d 4%Hadlock OFD 114.2 mm 39w 1d 91%Puneet HC 315.6 mm 35w 3d 13%Hadlock AC 318.4 mm 35w 5d 57%Hadlock Femur 67.4 mm 34w 5d 17%Hadlock HC / AC 0.99 30%Nicolaides Weight Calculation: EFW 2,612 g 35w 1d32% Hadlock EFW (lb,oz) 5 lb 12 oz EFW by Hadlock ([id number]) Head / Face / Neck Biometry: Health And Wellness Coordinator 5.1mm Extremities / Bony Struc Biometry: FL / BPD 0.81 FL / HC 0.21 FL / AC 0.21 GENERAL EVALUATION ----- Cardiac activity present. FHR 134 bpm. movements: present.Presentation: breech Placenta: Placental site: anterior Umbilical cord: Cord vessels: 3 vessel cord. Insertion site: placentalinsertion: normal Amniotic fluid: Amount of AF: normal amount. MVP 5.4 cm. CLAUDIA 11.6 cm. Q13.2 cm, Q2 3.1 cm, Q3 5.4 cm, Q4 0.0 cm ANATOMY ----- The following structures appear normal: Head / Neck Cranium. Lateral ventricles. Cavum septipellucidi. Heart / Thorax Diaphragm. Abdomen Stomach. Kidneys. Bladder. sex: female. GROWTH OVERVIEW ----- Exam date GA BPD (mm) HC (mm) AC (mm) FL(mm) HL (mm) EFW (g) 05/07/2024 22w 6d 57.8 77% 207.8 36% 187.5 64%40.2 43% 38.0 57% 578 62% 06/04/2024 26w 6d 65.4 24% 258.3 64% 228.7 54%49.9 35% 1,032 49% 07/04/2024 31w 1d 73.9 6% 291.5 40% 270.1 46%58.1 17% 1,653 30% 08/06/2024 35w 6d 82.9 4% 315.6 13% 318.4 57%67.4 17% 2,612 32% COMMENT ----- Patient's name and date of were verified by the electric power line examiner prior tothe exam IMPRESSION ----- 1. Single living fetus with a gestational age of 35w 6d, based on thereported clinical dates. 2. Current growth parameters are consistent with the stated EDC. The fetalsize is appropriate for gestational age at 32% percentile (2612 g). 3. Unremarkable limited anatomy noted. A detailed anatomycannot be performed secondary to advanced gestational age. However, there are no gross structural abnormalities noted. 4. The amniotic fluid is normal for gestational age (MVP:5.4 cm , CLAUDIA:11.6cm ). 5. Anterior placenta. No previa/not low-lying. 6. Breech presentation. Recommendations: - Further imaging as indicated. Thank you for allowing us to participate in the care of this patient. us Maritza Coughlin MD ORDERABLES Final Re sult from Last 3 Months [phone] [place] [address] [employer] BLUE ACCESS/TRUE BLUE PPO [phone] [place] [address] [employer] BLUE ACCESS/TRUE BLUE PPO
--- OUTSIDE RECORDS SUMMARY | 2024-09-03 00:34 | XMS_ITS | Referral Summary ---
Author Organization [facility] Address [address] [facility] [place] [address] Care Team Providers Care Production Support Developer Name Role Phone Maria Del Rosario Osborne MD Primary Care Provider Source Comments [facility],non-owned Affiliates and Associated Physician Practices is amultiple site organization consisting of ambulatory clinics and hospital sitesin [place], [place], [place] and [place]. This disclosure is being madepursuant to the Care Everywhere program and may not contain all information available regarding this patient. Last updated 18.[facility] Encounters Date Type Department Care Team Description 08/13/2024 Travel 08/13/2024 2:00 PM JEWELRY FACER Office Visit [facility] Medical Group - Family Medicine [address] [address] Carolynn Judd, MANUAL MACHINIST-PRODUCT/DEVICE TECHNOLOGIST Encounter for medical examination to establish care (Primary Dx); 36 weeks gestation of (HCC); Yeast infection from Last 3 Months Allergies No known active allergies Medications * Be aware that medications may not be up to date on this document. Alwaysverify current medications with the patient. Medication Sig Dispensed Refills Start Date End Date Status Vit-Fe Fumarate-FA ( vitamin) 28-0.8 MG tablet Take 1 (one) tablet by mouth once daily Active lactobacillus extra strength (Florajen) capsule Take 1 (one) capsule by mouth 3 times daily Active Active Problems Problem Noted Date Diagnosed Date 36 weeks gestation of 08/13/2024 Estimated Date of Delivery Comme nts Yes 09/04/2024 Immunizations Name Administration Dates Next Due COVID MODERNA BIVALENT 12Y+ 50MCG/0.5ML 03/07/2023 Covid Pfizer primary monoval ent 12+ yr 0.3mL Purple cap 12/12/2020,11/08/2020 DTaP VACCINE IM (6wk-6yrs) 12/07/2004,,04/28/2000,02/24,1999 HEP B VACCINE, PED/ADOL 08/08/2000,04/28/2000, HIB-PRP-OMP 3 DOSE 05/10/2001, 0,02/25/2000,12/23 Human Papilloma Virus Cole valent Vaccine 05/07/2011,01/07/2011,11/05/2010 INFLUENZA VACCINE, QUADR. (F LUZONE; FLULAVAL; FLUARIX; AFLURIA QUADRIVALENT; 6MO+), 0.5 ML (IIV4) 03/07/2023 MENINGOCOCCAL CONJUGATE (MCV4P) 11/02/2015,04/08 MMR VACCINE 12/07/2004,02/06/2001 PNEUMOCOCCAL PCV7 CONJ, PEDS 02/06/2001,08/08/19 01 POLIO IPV 12/07/2004, 1,02/25/2000,12/23 TDAP, HISTORIC VACCINE 11/05/2010 VARICELLA 11/05/2010,11/06/2000 Social History Tobacco Use Types Packs/Day Years Used Date Smoking Tobacco: Never Smokeless Tobacco: Never Alcohol Use Standard Drinks/Week Comments Not Currently 0 (1 standard drink = 0.6 oz pur e alcohol) PHQ-2 Answer Date Recorded Patient Health Questionnaire-2 Score 0 08/13/2024 Estimated Date of Delivery Comme nts Yes 09/04/2024 Sex and Gender Information Value Date Recorded Sex Assigned at Not on file Gender Identity Not on file Sexual Orientation Not on file Last Filed Vital Signs Vital Sign Reading Time Taken Comments Blood Pressure 128/84 08/13/2024 2:23 PM JEWELRY FACER Pulse - - Temperature 37 ??C (98.6 ??F) 08/13/2024 2:23 PM JEWELRY FACER Respiratory Rate - - Oxygen Saturation - - Inhaled Oxygen Concentration - - Weight 76.6 kg (168 lb 12.8 oz) 08/13/2024 2:23 PM JEWELRY FACER Height 152.4 cm (5') 08/13/2024 2:23 PM JEWELRY FACER Body Mass Index 32.97 08/13/2024 2:23 PM JEWELRY FACER Plan of Treatment Upcoming Encounters Date Type Department Care Team (Late st Contact Info) Description 08/14/2025 2:00 PM JEWELRY FACER Office Visit [facility] - Family Medicine [address] [place] [phone] Carolynn Judd, MANUAL MACHINIST-PRODUCT/DEVICE TECHNOLOGIST [address] [place] [phone] Care Teams Production Support Developer Relationship Specialty Start Date End Date Maria Del Rosario Osborne MD [address] [place] [address] PCP - General Internal Medicine 08/13/24
--- OUTSIDE RECORDS SUMMARY | 2024-09-03 00:34 | XMS_ITS | Patient Health Summary ---
Author Organization [facility] Address [address] [place] [place] [address] Care Team Providers Care Molding Technician Name Role Phone Maria Del Rosario Osborne MD Primary Care Provider Note from [facility],non-owned Affiliates and Associated Physician Practices is amultiple site organization consisting of ambulatory clinics and hospital sitesin [place], [place], [place] and [place]. This disclosure is being madepursuant to the Care Everywhere program and may not contain all information available regarding this patient. Last updated 18.[facility] Allergies No known active allergies Medications * Be aware that medications may not be up to date on this document. Alwaysverify current medications with the patient. * Vit-Fe Fumarate-FA ( vitamin) 28-0.8 MG tablet Take 1 (one) tablet by mouth once daily * lactobacillus extra strength (Florajen) capsule Take 1 (one) capsule by mouth 3 times daily Active Problems Problem Noted Date Diagnosed Date 36 weeks gestation of 08/13/2024 Immunizations * COVID MODERNA BIVALENT 12Y+ 50MCG/0.5ML(Given 03/07/2023) * Covid Pfizer primary monovalent 12+ yr 0.3mL Purple cap(Given 12/12/2020, 11/08/2020) * DTaP VACCINE IM (6wk-6yrs)(Given 12/07/2004, 05/10/2001, 04/28/2000, 02/25/2000, 1999) * HEP B VACCINE, PED/ADOL(Given 08/08/2000, 04/28/2000, 1999) * HIB-PRP-OMP 3 DOSE(Given 05/10/2001, 04/28/2000, 02/25/2000, 1999) * Human Papilloma Virus Quadrivalent Vaccine(Given 05/07/2011, 01/07/2011, 11/05/2010) * INFLUENZA VACCINE, QUADR. (FLUZONE; FLULAVAL; FLUARIX; AFLURIA QUADRIVALENT; 6MO+), 0.5 ML (IIV4)(Given 03/07/2023) * MENINGOCOCCAL CONJUGATE (MCV4P)(Given 11/02/2015, 04/08/2014) * MMR VACCINE(Given 12/07/2004, 02/06/2001) * PNEUMOCOCCAL PCV7 CONJ, PEDS(Given 02/06/2001, 08/08/2000) * POLIO IPV(Given 12/07/2004, 05/10/2001, 02/25/2000, 1999) * TDAP, HISTORIC VACCINE(Given 11/05/2010) * VARICELLA(Given 11/05/2010, 11/06/2000) Social History Tobacco Use Types Packs/Day Years [...] Comments Blood Pressure 128/84 08/13/2024 2:23 PM GARDEN WORKER Pulse - - Temperature 37 ??C (98.6 ??F) 08/13/2024 2:23 PM GARDEN WORKER Respiratory Rate - - Oxygen Saturation - - Inhaled Oxygen Concentration - - Weight 76.6 kg (168 lb 12.8 oz) 08/13/2024 2:23 PM GARDEN WORKER Height 152.4 cm (5') 08/13/2024 2:23 PM GARDEN WORKER Body Mass Index 32.97 08/13/2024 2:23 PM GARDEN WORKER Care Teams Molding Technician Relationship Specialty Start Date End Date Maria Del Rosario Osborne MD [address] [place] [phone] (work) PCP - General Internal Medicine 08/13/24
--- OUTSIDE RECORDS SUMMARY | 2024-09-03 00:34 | XMS_ITS | Clinical Summary ---
Author Organization [facility] Address [address] [facility] [facility] [place] [address] Care Team Providers Care Player Manager Name Role Phone Maria Del Rosario Osborne MD Primary Care Provider Source Comments [facility],non-owned Affiliates and Associated Physician Practices is amultiple site organization consisting of ambulatory clinics and hospital sitesin [place], [place], [place] and [place]. This disclosure is being madepursuant to the Care Everywhere program and may not contain all information available regarding this patient. Last updated 18.[facility] Allergies No known active allergies Medications [...] Date of Delivery Comme nts Yes 09/04/2024 Encounters Date Type Department Care Team Description 08/13/2024 2:00 PM PIPING BLOCKER Office Visit [facility] Medical [facility] - Family Medicine [address] [facility] [place] [address] [place] [address] Carolynn Judd, WHEEL OF FORTUNE DEALER-EMAIL DEVELOPER Encounter for medical examination to establish care (Primary Dx); 36 weeks gestation of (HCC); Yeast infection 08/13/2024 Travel from Last 3 Months Immunizations Name Administration Dates Next Due COVID [...] 1,02/25/2000,12/23 TDAP, HISTORIC VACCINE 11/05/2010 VARICELLA 11/05/2010,11/06/2000 Family History Medical History Relation Name Comments None Known Brother None Known Father None Known Mother COPD - Chronic Obstructive Pulmonary Disease Paternal Grandfather Cancer - Lung Paternal Grandfather Relation Name Status Comments Brother Alive Father Alive Mother Alive mother was adop aston from [facility] Paternal Grandfather Social History Tobacco Use Types Packs/Day Years [...] Comments Blood Pressure 128/84 08/13/2024 2:23 PM PIPING BLOCKER Pulse - - Temperature 37 ??C (98.6 ??F) 08/13/2024 2:23 PM PIPING BLOCKER Respiratory Rate - - Oxygen Saturation - - Inhaled Oxygen Concentration - - Weight 76.6 kg (168 lb 12.8 oz) 08/13/2024 2:23 PM PIPING BLOCKER Height 152.4 cm (5') 08/13/2024 2:23 PM PIPING BLOCKER Body Mass Index 32.97 08/13/2024 2:23 PM PIPING BLOCKER Plan of Treatment Upcoming Encounters Date Type Department Care Team (Late st Contact Info) Description 08/14/2025 2:00 PM PIPING BLOCKER Office Visit [facility] - Family Medicine [address] [place] [address] Carolynn Judd, WHEEL OF FORTUNE DEALER-EMAIL DEVELOPER [address] [place] [address] Health Maintenance Due Date Last Done Comments PAP SMEAR 1999 HIV SCREENING 10/28/2014 CHLAMYDIA/GONORRHEA SCREENING 2015 HEPATITIS C SCREENING 10/24/2017 DTAP/TDAP/TD VACCINES (7 - Td or Tdap) 11/05/2020 11/05/2010, 12/07/2004, 05/10/2001, Additional history exists COVID-19 VACCINE ( season) 2024 03/07/2023, 12/12/2020, 11/08/2020 INFLUENZA VACCINE (#1) 2024 03/07/2023 OB-ONE HOUR GLUCOSE 05/29/2024 OB-TDAP CURRENT 06/05/2024 11/05/2010 OB-RHOGAM INJECTION 06/12/2024 OB-GROUP B STREP SCREEN 07/31/2024 ZOSTER VACCINE (1 of 2) 10/28/2049 HEPATITIS B VACCINE Completed 08/08/2000, 04/28/2000, 1999 PNEUMOCOCCAL VACCINE Aged Out 02/06/2001, 08/08/19 01 No longer eligible based on patient's age to complete this topic HIB VACCINE Completed 05/10/2001, 04/01, 02/25/2000, Additional history exists HPV VACCINE Completed 05/07/2011, 12/29, 11/05/2010 MENINGOCOCCAL VACCINE Completed 11/02/2015, 014 DEPRESSION SCREENING Completed 08/13/2024 MENINGOCOCCAL (Group B) VACCINE Aged Out No longer eligible based on patient's age to complete this topic Respiratory Syncytial Virus (RSV) Vaccine Pt: or over 60 yrs (No Doses Required) Completed Care Teams Player Manager Relationship Specialty Start Date End Date Maria Del Rosario Osborne MD [address] [place], [place] [address] PCP - General Internal Medicine 08/13/24
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
[2024-09-03] MEDS: LACTATED RINGERS 1,000 ML 125 ML IV CONT ×3 (06:25→07:28)
[2024-09-03] MEDS: ACETAMINOPHEN 500 MG TABLET 1000 MG PO (06:28)
[2024-09-03 06:33] LABS: Basophils Percent Auto 0.3 % (0.2-1.2); Eosinophils Absolute Auto 0.2 K/mm3 (0-0.3); Eosinophils Percent Auto 1.2 % (0-4.4); Hematocrit 38.5 % (37.0-47.0); Hemoglobin 13.1 g/dL (12.0-15.0); Immature Granulocyte Absolute 0.13 K/mm3 (0.00-0.031); Immature Granulocyte Percent A 0.9 % (0-0.5); Lymphocytes Absolute Auto 2.09 K/mm3 (0.9-3.2); Lymphocytes Percent Auto 14.1 % (18.3-44.2); Mean Corpuscular Hemoglobin 32.9 pg (26-34); Mean Corpuscular Volume 96.7 fl (80-100); Mean Platelet Volume 11.7 fl (7.4-10.4); Monocytes Percent Auto 6.5 % (2.6-8.5); Neutrophils Absolute Auto 11.5 K/mm3 (1.3-6.7); Platelet Count Result 242 k/mm3 (150-375); Red Blood Count 3.98 M/mm3 (4.2-5.4); Red Cell Distribution Width 13.4 % (11.5-14.5); White Blood Count 14.9 K/mm3 (4.5-10.0)
[2024-09-03 06:40] LABS: Alanine Aminotransferase 15 U/L (6-35); Albumin Level 3.5 g/dL (3.5-5.1); Alkaline Phosphatase 191 U/L (38-126); Anion Gap 11 mmol/L (4-12); Aspartate Amino Transferase 21 U/L (14-36); Bilirubin,Total 0.3 mg/dL (0.2-1.3); Blood Urea Nitrogen 12 mg/dL (7-17); Calcium 9.2 mg/dL (8.4-10.2); Carbon Dioxide 19 mmol/L (22-30); Chloride 107 mmol/L (98-107); Estimated CRCL calculation 116 ml/min; Estimated Glomerular Filt Rate > 60; Glucose 77 mg/dL (65-110); Potassium 3.9 mmol/L (3.4-5.0); Sodium 137 mmol/L (137-145)
--- NOTE | 2024-09-03 07:13 | P.PNAN_ITS ---
Anes - Initial Pre Proc Eval Procedure: Operation Date: 09/03/24 07:30 Proposed Procedures p Repeat Section - Junior Bradford MD Date/Time: 09/03/24 07:13 Surgeon: Junior Bradford MD Pre Op Diagnosis: C/S Patient Data Age: 23 Gender: F Height: 1.52 m Weight: 81.8 kg Last Vital Signs Pulse 95 09/03/24 07:08 BP 138/93 H 09/03/24 07:08 O2 Del Method Room Air 09/03/24 06:34 Allergies Allergy/AdvReac Type Severity Reaction Status Date / Time No Known Allergies Allergy Verified 08/29/24 11:23 Home Medications ?Medication ?Instructions ?Recorded ?Confirmed ?Type vit no.95-ferrous 1 tablet PO DAILY #90 tabs 04/30/24 08/26/24 Rx fumarate 28 mg-folic acid 800 mcg tablet () lactobacillus combination no.4 3 3,000 mmu cells PO DAILY 06/05/24 08/26/24 History billion cell capsule (Probiotic) RSV vac, preF A and preF B(PF) 120 0.5 ml IM ONCE #1 ea 07/18/24 08/26/24 Rx mcg/0.5 mL IM solution (Abrysvo (PF)) Laboratory Tests 09/03/24 06:18 WBC 14.9 H K/mm3 (4.5-10.0) RBC 3.98 L M/mm3 (4.2-5.4) Hgb 13.1 g/dL (12.0-15.0) Hct 38.5 % (37.0-47.0) MCV 96.7 fl (80-100) MCH 32.9 pg (26-34) MCHC 34.0 g/dl (32-36) RDW 13.4 % (11.5-14.5) Plt Count 242 k/mm3 (150-375) MPV 11.7 H fl (7.4-10.4) Immature Gran % (Auto) 0.9 H % (0-0.5) Neut % (Auto) 77.0 H % (45.5-73.1) Lymph % (Auto) 14.1 L % (18.3-44.2) [place] % (Auto) 6.5 % (2.6-8.5) Eos % (Auto) 1.2 % (0-4.4) Baso % (Auto) 0.3 % (0.2-1.2) Lymph # (Auto) 2.09 K/mm3 (0.9-3.2) [place] # (Auto) 1.0 H K/mm3 (0.1-0.6) Eos # (Auto) 0.2 K/mm3 (0-0.3) Baso # (Auto) 0.0 K/mm3 (0.0-0.1) Abs Immat Gran (auto) 0.13 H K/mm3 (0.00-0.031) Absolute Neuts (auto) 11.5 H K/mm3 (1.3-6.7) Absolute Nucleated RBC 0.000 K/mm3 (0.0-0.012) Nucleated RBC % 0.0 % (0.0-0.2) Sodium 137 mmol/L (137-145) Potassium 3.9 mmol/L (3.4-5.0) Chloride 107 mmol/L (98-107) Carbon Dioxide 19 L mmol/L (22-30) Anion Gap 11 mmol/L (4-12) BUN 12 D mg/dL (7-17) Creatinine 0.60 L mg/dL (0.7-1.0) Estim Creat Clear Calc 116 ml/min Estimated GFR > 60 (59 - ) Glucose 77 mg/dL (65-110) Calcium 9.2 mg/dL (8.4-10.2) Total Bilirubin 0.3 mg/dL (0.2-1.3) AST 21 U/L (14-36) ALT 15 U/L (6-35) Alkaline Phosphatase 191 H U/L (38-126) Total Protein 7.0 g/dL (6.3-8.2) Albumin 3.5 g/dL (3.5-5.1) RPR Pending Hep Bs Antigen Pending HIV 1&2 Ab/P24 Ag 4thGn Pending Blood Type A Positive Antibody Screen Pending Patient hx anesthesia problems: none Family hx anesthesia problems: none Results Review: All pre-operative results and documents have been reviewed as part of the pre- operative evaluation. [facility] Past Medical History Medical History No significant medical problems Surgical History Surgical History No history of previous surgery Family History Family History Grandparent Lung cancer Other Family history non-contributory Social History Social History Social History: Surrogate medical decision maker: Clarisse Beverly, mother. Code status: Full code. Smoking status: Never smoker Alcohol intake: current Drinks per week: 1 Alcohol use details: Social alcohol use in moderation. Substance use: never Do You Feel Safe in your Home?: Yes Lack of Transportation: No Lack of Food: Never True Current Housing: I Have Housing Concerned About Future Housing: No Difficulty Paying Gas/Electric Bills: No Difficulty Paying for Meds: No Currently Unemployed: No Education: Associate Degree Difficulty w/ Childcare or Family Care: No Additional occupation/education comments: Works at [employer]. Spiritual care concerns: No Anes - Eval Final PreProcedure Day of Procedure 09/03/24 07:13 Patient weight: obese Heart: regular rate and rhythm Lungs: clear to auscultation Airway: Mallampati scale class II Neurological: alert and oriented Last oral intake: >/= 8 hours ASA classification: II Emergent: no Anesthetic plan: proceed Anesthesia type and monitoring: regional spinal and standard monitoring Results Review: All pre-operative results and documents have been reviewed as part of the pre-operative evaluation. Informed Consent: The patient's anesthetic plan and its attendant risks and benefits were discussed with the patient/family/POA. Questions were solicited and answers provided to the satisfaction of the patient/family/POA.
[2024-09-03 07:24] LABS: Rapid Plasma Reagin Non-Reactive (NonReactive)
[2024-09-03] MEDS: ceFAZolin 2 GM/D5W 50 ML 2 GM/50 ML BAG IVPB (07:31)
[2024-09-03] MEDS: FAMOTIDINE 20 MG/2 ML VIAL IV PUSH (07:32)
[2024-09-03] MEDS: ONDANSETRON INJ 4 MG/2 ML VIAL IV PUSH (07:32)
[2024-09-03 07:33] LABS: Hepatitis B Surface Antigen Negative (Negative)
[2024-09-03 08:21] LABS: HIV 1/2 Ab P24 Ag Result Negative (Negative)
--- NOTE | 2024-09-03 09:10 | P.PCNOB_ITS ---
OB - Delivery Note Procedure Delivery date: 09/03/24 Pre-op diagnosis: Breech Presentation and Other (Prior second trimester demise) Post-op Diagnosis: Same Prior to decision for section, ACOG/SMFM labor guidelines were considered and discussed with the patient and staff. Decision made to proceed with the section.: Yes Procedure Performed: Primary Surgeon: Junior Bradford MD Anesthesia type: Spinal Description of Procedure/Findings: Female infant 6 lb 13 oz normal uterus normal fallopian tubes and ovaries bilaterally on expiration of the uterus there was the macerated demise/placenta that was very lateral flattened appearance in left upper, separate from other placenta After informed consent, risks and benefits of the procedure was discussed with the patient. The patient was taken to the operating room where she was placed in the dorsal lithotomy position with leftward tilt. spinal anesthesia was placed and she was then prepped and draped in the usual sterile fashion. A Pfannenstiel skin incision was made with a scalpel and carried through to the underlying layer of fascia. The fascia was then nicked in the midline, extending bilaterally. The fascia was dissected off the rectus muscles bluntly and sharply, superiorly and inferiorly. The rectus muscles were in the midline, and peritoneum was identified and entered bluntly. The pelvic organs were visualized. The bladder blade was then inserted. The vesicouterine peritoneum was identified and entered sharply with Metzenbaum scissors and extended bilaterally and then the bladder flap was created digitally. The low transverse uterine incision was then made with the scalpel and extended with bilateral index fingers in a crescent-shaped fashion. the buttocks was delivered and then the legs were flexed and then delivered the trunk was then delivered and the arms were deliv ered there was a loose nuchal cord that was manually reduced after the head was delivered in flexed position. The nose and mouth suctioned. The cord was clamped twice and cut. The was then handed off to the awaiting pediatric staff. The placenta was then delivered manually. The rest of the cavity was palpated and to the superior left the macerated fetus and placenta was palpated and manually removed.The uterine cavity was sponge curretted. The uterus was then exteriorized. The uterine incision was then closed with 0 vicryl in a running locked fashion. The 2nd layer of stitch at the incision was closed with Multiple figure of eights of 0 vicryl. Hemostasis noted. the posterior cul-de-sac was irrigated and debris was removed The uterus was then returned to the abdomen. Bilateral gutters were cleared off all clots and debris. The uterine incision was noted to be hemostatic. Interceed placed on uterine incision and vertically on front of uterus. The muscle bellies were inspected and noted to be hemostatic. The subfascial layer was noted to be hemostatic, and the fascia was closed with 0 Vicryl in a running fashion. The subcutaneous layer was irrigated and was then was approximated with 3-0 Vicryl The skin was closed with 4-0 Vicryl on a Keif needle in subcuticular fashion. Skin dermabond applied at incision. dressing placed. All instruments, needle, and lap counts were correct x3. The patient was taken to the recovery room in stable condition. Estimated Blood Loss: 560 Drains: No Packing: No Pathology: Yes (placenta and macerated twin and small fibrotic placenta) Complications: No immediate complications Condition: Stable Disposition: Floor [place] Baby Date of : 09/03/24 Time of : 08:10 Gestational Age by Date: 39 Infant gender: Female Weight (pounds): 6 Weight (ounces): 13 presentation: nikki breech Placenta delivery description: Manual Removal Cord Vessel Description: Nuchal Cord and Loose score one minute: 8 score five minutes: 9
[2024-09-03] MEDS: OXYTOCIN 30 UNITS/NS 500 ML 30 UNITS/500 ML BAG 125 UNITS IV CONT (10:08)
--- NOTE | 2024-09-03 11:18 | PC.NURSE ---
Patient transferred to post room #286 via stretcher. Support person present. Oriented to unit, room, information board, rooming in, admission packet and security measures. Patient verbalizes understanding.
[2024-09-03] MEDS: SIMETHICONE 80 MG TAB.CHEW PO ×2 (12:06→16:36)
[2024-09-03] MEDS: ACETAMINOPHEN 325 MG TABLET 650 MG PO ×3 (12:06→23:49)
[2024-09-03] MEDS: KETOROLAC 15 MG/ML VIAL (*BKC) IV PUSH ×3 (12:07→23:51)
--- NOTE | 2024-09-03 13:18 | PC.NURSE ---
Introductions were made, then consulted with patient to assess needs related to . Mother led the conversation with her?plans to feed?her and the?experience so far. Encouraged understanding of the benefits of skin to skin (demonstrating unwrapping infant and placing upright on her chest), stimulating with massage touch, changing positions to encourage wakefulness, how to watch for early feeding cues, responsive feeding, feeding on demand (aiming for 8-12 times in 24 hours, about every 2-3 hours), milk production, building/maintaining a milk supply, duration of feeding, signs of adequate intake/output and how to record on the feeding sheet. Mother works well with her infant with encouragement and education. Reviewed positioning and ear, shoulder, hip alignment, supporting the breast to facilitate a deep latch, asymmetrical latch (off-center), leading with the chin with a big, open, wide gape and body close to mother. Infant latched optimally to the [left] breast in [cradle] position. Education given to the mother of how to visualize the suckling (with good rocking jaw motion), swallows (dropping of the lower jaw) and how to listen for drinking at the breast (the ka sound). was [able/unable] to maintain latch without pain to mother protecting the nipple with optimal positioning and latching. Reviewed comfort measures of healing with a warm, wet washcloth to rinse breast, then leave open to air-dry, good handwashing when or touching the breast/nipples to prevent infection. Mother voiced understanding of skin to skin, stimulating with massage touch, responsive feedings, hand expressed colostrum, talking to to encourage if it has been 2 -2.5 hours since the start of the last , to call if does not latch, or if there is discomfort with . Resources used for education were facilitated with the [visual educational handouts/ tool/mom and baby guide], Inpatient/outpatient resources provided with business card, feeding sheet, name written on the communication board, and the mom/baby guide. Parents voiced understanding of information, demonstrated learning and will call if there is a request for assistance. Reported to the Primary RN.
[2024-09-03] MEDS: KCL 20 MEQ/D5/0.45% SOD CHL 1,000 ML 125 ML IV CONT (14:46)
[2024-09-03] MEDS: HYDROcodone/acetaminophen (*CRX) 5-325 MG TABLET 1 TAB PO ×2 (16:35→23:49)
[2024-09-03] MEDS: DOCUSATE SODIUM 100 MG CAPSULE PO (16:35)
[2024-09-03] MEDS: LIDOCAINE 5% PATCH 1 PATCH TRANSDERM (16:36)
[2024-09-04] VITALS: BP 125/73; PULSE 96; RESP 16; TEMP 37.1; O2SAT 98
[2024-09-04 04:00] VITALS: BP 124/82; PULSE 91; RESP 16; TEMP 37.1; O2SAT 98
[2024-09-04] MEDS: HYDROcodone/acetaminophen (*CRX) 5-325 MG TABLET 1 TAB PO ×4 (04:11→21:56)
[2024-09-04 05:07] LABS: Basophils Percent Auto 0.2 % (0.2-1.2); Eosinophils Absolute Auto 0.1 K/mm3 (0-0.3); Eosinophils Percent Auto 0.8 % (0-4.4); Hematocrit 32.3 % (37.0-47.0); Immature Granulocyte Absolute 0.09 K/mm3 (0.00-0.031); Immature Granulocyte Percent A 0.6 % (0-0.5); Lymphocytes Absolute Auto 1.52 K/mm3 (0.9-3.2); Lymphocytes Percent Auto 9.4 % (18.3-44.2); Mean Corpuscular HGB Conc 34.1 g/dl (32-36); Mean Corpuscular Hemoglobin 32.9 pg (26-34); Mean Corpuscular Volume 96.7 fl (80-100); Mean Platelet Volume 12.2 fl (7.4-10.4); Monocytes Absolute Auto 0.8 K/mm3 (0.1-0.6); Monocytes Percent Auto 5.2 % (2.6-8.5); Neutrophils Absolute Auto 13.6 K/mm3 (1.3-6.7); Neutrophils Percent Auto 83.8 % (45.5-73.1); Platelet Count Result 193 k/mm3 (150-375); Red Blood Count 3.34 M/mm3 (4.2-5.4); Red Cell Distribution Width 13.6 % (11.5-14.5); White Blood Count 16.2 K/mm3 (4.5-10.0)
[2024-09-04] MEDS: KETOROLAC 15 MG/ML VIAL (*BKC) IV PUSH (05:46)
[2024-09-04] MEDS: ACETAMINOPHEN 325 MG TABLET 650 MG PO ×3 (05:46→20:23)
[2024-09-04 07:30] VITALS: BP 134/79; PULSE 95; RESP 18; TEMP 37.2; O2SAT 96
--- NOTE | 2024-09-04 08:54 | PC.NURSE ---
On 09/04/24, the student, Jordan Sung, provided care and completed [facility] documentation on this patient. I have reviewed the student's documentation and agree with the findings.
[2024-09-04] MEDS: SIMETHICONE 80 MG TAB.CHEW PO ×3 (09:33→20:23)
[2024-09-04] MEDS: MULTIVIT/MIN/PREN/FOL AC/IRON TABLET 1 TAB PO (09:33)
[2024-09-04] MEDS: DOCUSATE SODIUM 100 MG CAPSULE PO ×2 (09:33→20:23)
--- NOTE | 2024-09-04 11:10 | PC.NURSE ---
Consulted with mother to assess needs related to . Discussed with mother her?plans to feed?her and the?experience so far. Mother is experiencing some nipple soreness, lanolin provided. RN assisted mother with obtaining a deeper latch on right breast in the football position, she says the pain is less and baby is able to maintain her latch. Resources provided for inpatient and outpatient services with the feeding sheet, mom/baby guide and name written on the communication board. Mother voiced understanding of information and will call if there is a request for assistance. Reported to the Primary RN.
[2024-09-04] MEDS: IBUPROFEN 600 MG TABLET PO ×2 (12:36→20:24)
--- NOTE | 2024-09-04 13:12 | WPDANLDNPN2 ---
Anes-Prog Note L&D-Neuraxial Date/Time: 09/04/24 13:12 Neuraxial medications: intrathecal PF morphine Opiod-related complaints: none Patient feedback: Patient satisfied with post-operative pain management.
--- NOTE | 2024-09-04 13:12 | WPDANLDPN2 ---
Anes-Prog Note L&D Date/Time: 09/04/24 13:12 Comfortable throughout: delivery and section Neuraxial method: spinal Epidural/Spinal procedure site: clean & non-tender Neuro status: Neuro function grossly intact. Cardiovascular status: normal Respiratory status: normal Airway patency: baseline Mental status: baseline Post-Op hydration status: normal Vital Signs: Last Vital Signs Temp 37.2 C 09/04/24 07:30 Pulse 95 09/04/24 07:30 Resp 18 09/04/24 07:30 BP 134/79 09/04/24 07:30 Pulse Ox 96 09/04/24 07:30 O2 Del Method Room Air 09/03/24 19:27 Pain score (VAS): 5 I/O: Intake & Output 09/03/24 09/04/24 09/04/24 23:59 07:59 15:59 Intake Total 1000 240 Output Total 750 1350 500 Balance 250 -1350 -260 Post-procedural complaints: none Patient feedback: Patient satisfied with anesthetic care.
--- NOTE | 2024-09-04 15:51 | P.PNOB_ITS ---
OB - PN: Subj Subjective Date/time seen: 09/04/24 0830 Interval history: Primary c/s for breech presentation POD 1 Patient comments: no complaints, pain well controlled, tolerating diet and flatus present baby status: doing well and nursing well feeding status: exclusively breast feeding OB - PN: Obj Data Labs 09/04/24 03:50 09/03/24 06:18 Labs: Laboratory Results - last 24 hr 09/04/24 03:50 WBC 16.2 H RBC 3.34 L Hgb 11.0 L Hct 32.3 L MCV 96.7 MCH 32.9 MCHC 34.1 RDW 13.6 Plt Count 193 MPV 12.2 H Immature Gran % (Auto) 0.6 H Neut % (Auto) 83.8 H Lymph % (Auto) 9.4 L [place] % (Auto) 5.2 Eos % (Auto) 0.8 Baso % (Auto) 0.2 Lymph # (Auto) 1.52 [place] # (Auto) 0.8 H Eos # (Auto) 0.1 Baso # (Auto) 0.0 Abs Immat Gran (auto) 0.09 H Absolute Neuts (auto) 13.6 H Absolute Nucleated RBC 0.000 Nucleated RBC % 0.0 OB - PN A/P Plan day: 1 Plan: routine care Comments: routine post op care. pt doing well. Time Spent With Patient Time: Total time spent is greater than 50% in coordination of care (as documented) at patient's floor/unit and/or counseling patient: Time with patient: 15 - 25 minutes Review of Systems 2 Constitutional: Constitutional: Denies body ache(s), Denies chills, Denies fever(s) and Denies headache(s) Eyes: Eyes: Denies blurry vision and Denies change in vision Cardiovascular: Cardiovascular: Denies chest pain, Denies chest pain with activity, Denies irregular heart rhythm and Denies leg edema Respiratory: Respiratory: Denies dyspnea Gastrointestinal: Gastrointestinal: Denies abdominal pain Genitourinary: Genitourinary: Denies flank pain and Denies urinary incontinence Musculoskeletal: Musculoskeletal: Reports no additional musculoskeletal complaints Integumentary/Breasts: Skin/Breast: Reports system reviewed and no additional complaints, except as docu, Denies breast pain and Denies breast mass Neurologic: Denies Abnormal speech present, Denies abnormal gait, Denies confusion and Denies dizziness Psychiatric: Psychiatric: Denies homicidal ideation and Denies suicidal ideation Endocrine: Endocrine: Reports no additional endocrine complaints Hematologic/Lymphatic: Hematologic/Lymphatic: Reports no additional hematologic/lymphatic complaints Allergic/Immunologic: Allergic/Immunologic: Reports no additional allergic/immunologic complaints Exam 2 Const: General: comfortable and no acute distress Resp: Effort & Inspection: normal respiratory effort Auscultation: clear to auscultation bilaterally Cardio: Rate: regular rate Rhythm: regular rhythm GI: Auscultation: normal bowel sounds Other: incision clean, dry and intact : Other: fundus 1-2 below umbilicus Skin: General skin exam: normal color Neuro: General: oriented to person, oriented to place and oriented to time Extrem: General: normal to inspection, capillary refill normal and no calf tenderness Psych: Mental Status: mental status grossly normal Affect: normal affect
[2024-09-04 16:00] VITALS: BP 120/74; PULSE 74; RESP 18; TEMP 36.9; O2SAT 99
[2024-09-04 20:15] VITALS: BP 143/84; PULSE 96; RESP 18; TEMP 37.1; O2SAT 99
--- NOTE | 2024-09-04 22:15 | PC.NURSE ---
1999. Mom discussed pain and pressure while ambulating to the bathroom. This nurse offered to get her an abdominal binder and mom accepted. Instructions given to mom on how to put it on, mom verbalized understanding.
[2024-09-05] MEDS: HYDROcodone/acetaminophen (*CRX) 10-325 MG TABLET 1 TAB PO ×2 (02:34→20:23)
[2024-09-05] MEDS: ACETAMINOPHEN 325 MG TABLET 650 MG PO ×3 (02:34→13:22)
[2024-09-05] MEDS: IBUPROFEN 600 MG TABLET PO ×3 (02:34→13:23)
[2024-09-05 07:55] VITALS: BP 130/75; PULSE 97; RESP 16; TEMP 36.6; O2SAT 97
[2024-09-05] MEDS: MULTIVIT/MIN/PREN/FOL AC/IRON TABLET 1 TAB PO (08:53)
[2024-09-05] MEDS: DOCUSATE SODIUM 100 MG CAPSULE PO (08:53)
[2024-09-05] MEDS: SIMETHICONE 80 MG TAB.CHEW PO ×2 (08:53→13:22)
--- NOTE | 2024-09-05 12:07 | PC.NURSE ---
Mother verbalizes she is able to independently latch with appropriate positioning and alignment. She denies any nipple discomfort and is responsively . Infant is currently meeting outcomes for weight, output, jaundice, blood sugar and feeding frequencies of 8-12 times in 24 hours. Mother declines any additional assistance or education at this time. Mother is encouraged to call for assistance if her infant doesn?t latch, pain with latching, questions or concerns. Mother voiced understanding of information shared along with the mom/baby guide for an additional resource. Reported to the Primary RN.
--- NOTE | 2024-09-05 12:49 | P.PNOB_ITS ---
OB - PN: Subj Subjective Date/time seen: 09/05/24 12:49 Interval history: Primary c/s for breech presentation POD 2 Patient comments: no complaints, pain well controlled, tolerating diet and flatus present baby status: doing well and nursing well feeding status: exclusively breast feeding OB - PN: Obj Data Labs 09/04/24 03:50 09/03/24 06:18 OB - PN A/P Plan day: 2 Plan: routine care Comments: routine post op care. pt doing well. Time Spent With Patient Time: Total time spent is greater than 50% in coordination of care (as documented) at patient's floor/unit and/or counseling patient: Time with patient: less than 15 minutes Review of Systems 2 Constitutional: Constitutional: Denies body ache(s), Denies chills, Denies fever(s) and Denies headache(s) Eyes: Eyes: Denies blurry vision and Denies change in vision ENT: Denies dizziness and Denies headache(s) Cardiovascular: Cardiovascular: Denies chest pain, Denies chest pain with activity, Denies irregular heart rhythm, Denies leg edema and Denies dyspnea Respiratory: Respiratory: Denies dyspnea Gastrointestinal: Gastrointestinal: Denies abdominal pain Genitourinary: Genitourinary: Denies flank pain and Denies urinary incontinence Musculoskeletal: Musculoskeletal: Reports no additional musculoskeletal complaints and Denies abnormal gait Integumentary/Breasts: Skin/Breast: Reports system reviewed and no additional complaints, except as docu, Denies breast pain and Denies breast mass Neurologic: Denies Abnormal speech present, Denies abnormal gait, Denies confusion, Denies dizziness and Denies headache(s) Psychiatric: Psychiatric: Denies confusion, Denies homicidal ideation and Denies suicidal ideation Endocrine: Endocrine: Reports no additional endocrine complaints Hematologic/Lymphatic: Hematologic/Lymphatic: Reports no additional hematologic/lymphatic complaints Allergic/Immunologic: Allergic/Immunologic: Reports no additional allergic/immunologic complaints Exam 2 Const: General: comfortable and no acute distress O rientation/consciousness: oriented to person, oriented to place and oriented to time Resp: Effort & Inspection: normal respiratory effort Auscultation: clear to auscultation bilaterally Cardio: Rate: regular rate Rhythm: regular rhythm GI: Auscultation: normal bowel sounds Other: incision clean, dry and intact : Other: fundus 1-2 below umbilicus Skin: General skin exam: normal color Neuro: General: oriented to person, oriented to place and oriented to time Extrem: General: normal to inspection, capillary refill normal and no calf tenderness Psych: Mental Status: mental status grossly normal Affect: normal affect
[2024-09-05 20:20] VITALS: BP 130/86; PULSE 97; RESP 16; TEMP 36.4; O2SAT 100; O2SAT 97
[2024-09-06] MEDS: IBUPROFEN 600 MG TABLET PO ×4 (00:43→20:11)
[2024-09-06] MEDS: ACETAMINOPHEN 325 MG TABLET 650 MG PO ×4 (00:43→20:12)
[2024-09-06] MEDS: HYDROcodone/acetaminophen (*CRX) 10-325 MG TABLET 1 TAB PO ×4 (01:10→20:09)
[2024-09-06 05:20] VITALS: BP 135/84; PULSE 92; RESP 16; TEMP 37.1; O2SAT 97
[2024-09-06] MEDS: MULTIVIT/MIN/PREN/FOL AC/IRON TABLET 1 TAB PO (07:28)
[2024-09-06] MEDS: SIMETHICONE 80 MG TAB.CHEW PO ×2 (07:28→14:01)
[2024-09-06] MEDS: DOCUSATE SODIUM 100 MG CAPSULE PO ×2 (07:28→20:12)
[2024-09-06 08:00] VITALS: BP 134/95; PULSE 90; RESP 16; TEMP 37; O2SAT 100
--- NOTE | 2024-09-06 08:15 | PC.NURSE ---
Request from primary RN to review feeding plan with patient. She has her own breast pump but hasn't used it yet. Advised her that at the next feeding, which she says is soon, she should breastfeed the baby and then call out so that we can start her pumping. We discussed that pumped milk with be given first as a supplement and then formula after. Patient agrees to call out when she is ready to pump. Reported back to primary RN.
--- NOTE | 2024-09-06 09:10 | P.PNOB_ITS ---
OB - PN: Subj Subjective Date/time seen: 09/06/24 09:10 Interval history: Primary c/s for breech presentation POD 3 Patient comments: pain well controlled and flatus present [place] baby status: doing well and nursing well OB - PN: Obj Data Labs 09/04/24 03:50 09/03/24 06:18 OB - PN A/P Assessment and Plan (1) Delivery by section: Status: Acute Assessment and Plan: POD3. Doing well. States started feeling better with pain control today. Will discharge tomorrow. Routine post section care. Offered SSRI therapy she declines. She has previously been given information regarding counseling. She states she feels good and has good family support and is aware of available resources. Time Spent With Patient Time: Total time spent is greater than 50% in coordination of care (as documented) at patient's floor/unit and/or counseling patient: Exam 2 Const: General: comfortable and no acute distress Resp: Effort & Inspection: normal respiratory effort GI: Other: incision intact, no drainage, fundus -4umb firm Extrem: General: normal to inspection, no calf tenderness and other (1+ edema bilat) Psych: Mental Status: mental status grossly normal
--- NOTE | 2024-09-06 09:10 | PM.OBDSVD ---
OB - DS: Summary Peripartum Data Procedures: Procedures Operation Date: 09/03/24 07:30 Actual Procedure Side Surgeon p Repeat Section Bilateral Junior Bradford MD Time Spent with Patient Time attestation: Total time spent providing and/or coordinating discharge services: DS: Data Data Completed and Pending Completed studies during hospitalization: Pending at discharge 09/03/24 08:12 Surgical [PTH] Routine Discharge Plan Discharge Patient Language: Barbadian Discharge Medications: No Action Probiotic 3 billion cell capsule 3,000 mmu cells PO DAILY Rx Instructions: administer with a meal Abrysvo (PF) 120 mcg/0.5 mL recon soln 0.5 ml IM ONCE Qty: 1 0RF Rx Instructions: as a single dose PNV cmb#95-ferrous fumarate-FA [] 28 mg iron- 800 mcg tablet 1 tablet PO DAILY Qty: 90 0RF Date of admission: 09/03/24 05:49 Primary Care Provider: PHYSICIAN NOT ON STAFF,NONSTAFF Admitting Provider: Junior Bradford Attending physician on admission: Junior Bradford
--- NOTE | 2024-09-06 11:15 | PC.NURSE ---
Assisted patient to initiate pumping and develop a feeding plan. Patient has a [employer] pump and we used the 19mm flange insert. She pumped for 15 minutes and got 7ml of colostrum. Encouraged her that this is great and bodes well for future milk production. Mom has her user manual for specific use instructions and cleaning guidance. Advised taht she needs to wash her pump parts after each pump session. Reinforced the importance of , pumping and supplementing every 3 hours. Encouraged mom that although this is a lot of work, it should only need to be sustained for a short time until her milk is in and then she can reduce pumping and supplementing if baby is eating appropriately and gaining weight. Mom is sleepy and she doesn't have a support person present at this time. She will need further education reinforcement. While mom pumped, baby was fed 22ml of Similac and took it well. Educated mom on the use of the formula bottles and to throw them away after each use and get a new one at the next feeding. There is no specific order for supplementation amount from the certified caregiver so we started with 15-20mls. Mom has the name/number and will call out for further assistance and questions. Reported to primary RN.
--- NOTE | 2024-09-06 11:58 | PC.NURSE ---
Spoke with Dr. Martin at 0800 regarding baby's weight percentage loss. Dr. Martin would like mother to supplement with each feeding. She would like to assess mother and baby's breast feedings. No certain amount of supplementation ordered at this time.
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
[2024-09-06 20:00] VITALS: BP 132/88; PULSE 100; RESP 16; TEMP 37.2; O2SAT 97
[2024-09-07] MEDS: IBUPROFEN 600 MG TABLET PO ×2 (03:18→10:09)
[2024-09-07] MEDS: ACETAMINOPHEN 325 MG TABLET 650 MG PO ×2 (03:18→10:09)
[2024-09-07] MEDS: SIMETHICONE 80 MG TAB.CHEW PO (06:31)
[2024-09-07] MEDS: MULTIVIT/MIN/PREN/FOL AC/IRON TABLET 1 TAB PO (06:31)
[2024-09-07] MEDS: HYDROcodone/acetaminophen (*CRX) 10-325 MG TABLET 1 TAB PO (06:32)
[2024-09-07] MEDS: DOCUSATE SODIUM 100 MG CAPSULE PO (06:32)
[2024-09-07 08:00] VITALS: BP 118/84; PULSE 97; RESP 16; TEMP 36.8; O2SAT 97
--- NOTE | 2024-09-07 10:35 | P.DS_ITS ---
DS: Admitting Diagnosis Discharge Date 09/07/2024 Admitting Diagnosis DS: Discharge Diagnosis Discharge Diagnosis (1) , delivered: Code(s): O80 - Encounter for full-term uncomplicated delivery Status: Acute OB - DS: Summary OB Procedures : None OB Procedures Intrapartum: OB Procedures: : None Peripartum Data Procedures: Procedures Operation Date: 09/03/24 07:30 Actual Procedure Side Surgeon p Repeat Section Bilateral Junior Bradford MD Time Spent with Patient Time attestation: Total time spent providing and/or coordinating discharge services: DS: Data Data Completed and Pending Completed studies during hospitalization: Pending at discharge 09/03/24 08:12 Surgical [PTH] Routine Discharge Plan Discharge Attending physician on discharge: Junior Bradford Consulting providers: Kennedy Marshall Discharging Clinician: Pedro Kelley Anticipated Discharge Date/Time: 09/07/24 09:31 Patient Disposition: Home, Self-Care Activity: may shower, no driving and pelvic rest Diet: regular Wound Care Instructions: follow printed instructions Patient Instructions: Antibiotic Form Patient Language: Greenlandic Stand Alone Forms: General Discharge Information Follow-up/Referrals: Junior Bradford MD [Physician] - Call for Appointment (Follow up in 1-2 weeks) Discharge Medications: New hydrocodone-acetaminophen 5-325 mg Tablet 1 tablet PO Q3H PRN (Reason: Breakthrough Pain Rated 4-6) Qty: 20 0RF ibuprofen 600 mg Tablet 600 mg PO Q6H Qty: 30 0RF acetaminophen 325 mg Tablet 650 mg PO Q6H Qty: 20 0RF No Action Probiotic 3 billion cell capsule 3,000 mmu cells PO DAILY Rx Instructions: administer with a meal Abrysvo (PF) 120 mcg/0.5 mL recon soln 0.5 ml IM ONCE Qty: 1 0RF Rx Instructions: as a single dose PNV cmb#95-ferrous fumarate-FA [] 28 mg iron- 800 mcg tablet 1 tablet PO DAILY Qty: 90 0RF Date of admission: 09/03/24 05:49 Primary Care Provider: PHYSICIAN NOT ON STAFF,NONSTAFF Admitting Provider: Junior Bradford Attending physician on admission: Junior Bradford Condition: Stable
[2024-09-07] MEDS: MEASLES,MUMPS,RUBELLA VACCINE 0.5 ML VIAL SUB-Q (12:15)
--- NOTE | 2024-09-07 15:10 | PC.NURSE ---
Introductions were made, then consulted with patient to assess needs related to . Discussed with mother how the feeding plan is going. She states that she is pumping regularly, getting more volume of breast milk, and leaking milk. She continues to supplement with formula also. She declines having any questions or concerns regarding feeding at this time. Resources provided for inpatient and outpatient services ([facility] form signed and faxed to [facility] office) with the feeding sheet, cleaning your breast pump, common issues, and breast milk storage guide handouts, mom/baby guide and name/number written on the communication board. Mother voiced understanding of information and will call if there is a request for assistance. Reported to the Primary RN.
[2024-09-09 14:10] VITALS: BP 135/68; PULSE 98; RESP 18; TEMP 36.4; O2SAT 100
== END 2024-09-07 16:30 | disposition home or self-care (01) | DRG 788 ==
LOC: ANHOB2 09-06 09:32 → ANHLDR 09-10 10:53
PROVIDERS: Admitting Provider Obstetrics & Gynecology; Visit Provider Obstetrics & Gynecology
PROC: 10D00Z1 Extraction of Products of Conception, Low, Open Approach (ICD-10-PCS; CPT 59514; principal; 2024-09-03 07:30)
DX: O32.1XX0 Maternal care for breech presentation, not applicable or unspecified (principal); Z37.0 Single live birth; Z3A.39 39 weeks gestation of pregnancy; O99.824 Streptococcus B carrier state complicating childbirth
CPT/HCPCS: 36415; 80053; 85025; 86592; 86703; 86850; 86900; 86901; 87340; 88307; 90710; A9270; G0432; J0690; J1885; J2274; J2371; J2405; J2590; J3480; J7120

== ENCOUNTER 2025-07-03 16:28 | Emergency (ER) | payer BC, OTHER, SELFPAY ==
--- NOTE | ~2025-07-03 | CT_ITS ---
CT abdomen pelvis w con INDICATION:RLQ and RUQ abdominal pain . COMPARISON: None. TECHNIQUE: Axial images of the abdomen and pelvis were obtained following infusion of 100 mL Isovue 300. Dose optimization technique was utilized. FINDINGS: The lung bases are clear. The liver parenchyma is unremarkable. No intrahepatic mass or ductal dilatation is evident. The gallbladder is unremarkable. The pancreas and spleen are normal in appearance. The adrenal glands are symmetric in size. The kidneys demonstrate symmetric uptake and excretion of contrast. No cystic mass is evident. There is no solid mass. There is no hydronephrosis. The stomach and bowel loops are unremarkable. The appendix is normal in appearance. The bladder and rectum are normal. The uterus and both adnexa are unremarkable. No free intraperitoneal fluid or air is evident. There is no significant retroperitoneal lymphadenopathy. The aorta, visceral vessels and renal arteries demonstrate normal caliber and patency. The lower thoracic and lumbar vertebrae are in normal alignment. IMPRESSION: No acute abnormality is noted in the abdomen and pelvis. All CT scans at this facility are performed using low dose modulation techniques as appropriate to perform exam including the following: automated exposure control; use of iterative reconstruction technique; adjustment of the mA and/or kV according to patient size (this includes techniques or standardized protocols for targeted exams where dose is matched to indication/reason for exam). Reviewed, dictated and finalized at location S. [facility] IMPRESSION: No acute abnormality is noted in the abdomen and pelvis. All CT scans at this facility are performed using low dose modulation techniqu es as appropriate to perform exam including the following: automated exposure c ontrol; use of iterative reconstruction technique; adjustment of the mA and/or kV according to patient size (this includes techniques or standardized protocol s for targeted exams where dose is matched to indication/reason for exam).
[2025-07-03 16:43] VITALS: BP 160/79; PULSE 95; RESP 18; TEMP 36.1; O2SAT 99
[2025-07-03 18:46] LABS: BEDSIDEPREGUCG Negative (Negative)
--- NOTE | 2025-07-03 18:52 | ED_ITS ---
HPI - Abdominal Pain General Chief Complaint: Abdominal Pain Stated Complaint: RLQ pain radiating to back, nausea, diarrhea Time Seen by Provider: 07/03/25 18:38 History of Present Illness HPI narrative: Patient is a 24-year-old female who presents to the ER with right upper and lower abdominal pain. She reports that started approximately 2 days ago. Patient rates the pain at a 6 to 7/10. She reports the pain radiates to her back. Patient denies any urinary symptoms but endorses urinary frequency and some abnormal vaginal discharge. She she endorses a history of a 10 months ago, yeast infection, and bacterial vaginosis. Patient reports her last menstrual period was in April but has been irregular since she gave . She reports she has had diarrhea for the past 2 days with the last episode being 4-5 hours ago. Patient denies any recent fevers, chest pain, shortness of breath, or lower extremity swelling. Related Data Home Medications ?Medication ?Instructions ?Recorded ?Confirmed ?Last Taken ?Type lactobacillus combination no.4 3 3,000 mmu cells PO DA ANDERSON 11/14/24 11/14/24 Unknown History billion cell capsule (Probiotic) Allergies Allergy/AdvReac Type Severity Reaction Status Date / Time No Known Allergies Allergy Verified 07/03/25 19:35 Review of Systems 2 Review of Systems: All systems reviewed & are unremarkable except as noted in HPI and below PMFSH Past Medical History Medical History No significant medical problems Surgical History Surgical History Hx of section Family History Family History Grandparent Lung cancer Other Family history non-contributory Social History Social History Social History: Surrogate medical decision maker: Clarisse Beverly, mother. Code status: Full code. Smoking status: Never smoker Alcohol intake: current Drinks per week: 1 Alcohol use details: Social alcohol use in moderation. Substance use: never Lack of Transportation: No Lack of Food: Never True Current Housing: I Have Housing Concerned About Future Housing: No Difficulty Paying Gas/Electric Bills: No Difficulty Paying for Meds: No Currently Unemployed: No Education: Associate Degree Difficulty w/ Childcare or Family Care: No Additional occupation/education comments: Works at [employer]. Spiritual care concerns: No Exam 2 Narrative: GENERAL: Well appearing, well-nourished, non-toxic, in no acute distress. HEAD: Normocephalic, atraumatic. NECK: Supple. No adenopathy, no masses. RESPIRATORY: Airway patent, respirations nonlabored. Clear to auscultation bilaterally, no rales, rhonchi, wheezing. CARDIOVASCULAR: Regular rate and rhythm without murmurs, rubs, or gallops. Peripheral pulses 2+ and equal bilaterally. No CVA tenderness ABDOMINAL: Soft, right upper quadrant and right lower quadrant tenderness with palpation, nondistended, no hepatosplenomegaly. Normoactive BS. + Agarwal sign. MUSCULOSKELETAL: Moves all extremities. Strength/ROM intact without gross deformities. SKIN: Warm, dry, normal color. No rashes. NEURO: A&O X3. Speech clear. Cranial nerves II-XII intact. No ataxic movements. PSYCHIATRIC: Appropriate mood and affect. Normal interaction. Course Vital Signs Vital signs: Vital Signs Temperature 36.1 C L 07/03/25 16:43 Pulse Rate 95 07/03/25 16:43 Respiratory Rate 18 07/03/25 16:43 Blood Pressure 160/79 H 07/03/25 16:43 Pulse Oximetry 99 07/03/25 16:43 Oxygen Delivery Room Air 07/03/25 16:43 Temperature 36.1 C L 07/03/25 16:43 Pulse Rate 95 07/03/25 16:43 Respiratory Rate 18 07/03/25 16:43 Blood Pressure 160/79 H 07/03/25 16:43 Pulse Oximetry 99 07/03/25 16:43 Oxygen Delivery Room Air 07/03/25 16:43 [facility] MDM Narrative Medical decision making narrative: Patient is a 24-year-old female who presents to the ER with right upper and lower abdominal pain. She reports that started approximately 2 days ago. Patient rates the pain at a 6 to 7/10. She reports the pain radiates to her back. Patient denies any urinary symptoms but endorses urinary frequency and some abnormal vaginal discharge. She she endorses a history of a 10 months ago, yeast infection, and bacterial vaginosis. Patient reports her last menstrual period was in April but has been irregular since she gave . She reports she has had diarrhea for the past 2 days with the last episode being 4-5 hours ago. Patient denies any recent fevers, chest pain, shortness of breath, or lower extremity swelling. Labs Ordered: CBC, CMP, UA, beta hCG, lipase, STD screen Imaging Ordered: CT abdomen pelvis Medications Ordered: 1 L normal saline IV bolus, ceftriaxone 1 g IM, fluconazole p.o. Results: Pt's CT scan indicates The liver parenchyma is unremarkable. No intrahepatic mass or ductal dilatation is evident. The gallbladder is unremarkable. The pancreas and spleen are normal in appearance. The adrenal glands are symmetric in size. The kidneys demonstrate symmetric uptake and excretion of contrast. No cystic mass is evident. There is no solid mass. There is no hydronephrosis. The stomach and bowel loops are unremarkable. The appendix is normal in appearance. The bladder and rectum are normal. The uterus and both adnexa are unremarkable. No free intraperitoneal fluid or air is evident. There is no significant retroperitoneal lymphadenopathy. The aorta, visceral vessels and renal arteries demonstrate normal caliber and patency. The lower thoracic and lumbar vertebrae are in normal alignment. Diagnosis: Urinary tract infection, yeast infection Consults: OBGYN (already established), Dr Bradford Patient Education/Shared MDM: Results of lab work and imaging shared with patient. She he endorses frequent urinary tract infection diagnoses. Patient strongly advised to maintain hydration status upon discharge and follow-up with OBGYN as soon as possible for further evaluation. She will be discharged home with a prescription for Keflex and Diflucan. Strict return precautions provided. Patient verbalized understanding and is in agreement with plan. Vital signs stable at time of discharge. All questions answered. Differential Diagnosis Differential Diagnosis: Cholelithiasis, ovarian cyst, ectopic , urinary tract infection, yeast infection Lab Data MDM Lab Attestation statement: I personally reviewed the patient's lab results. 07/03/25 18:59 07/03/25 18:59 Labs: Lab Results 07/03/25 07/03/25 07/03/25 Range/Units 18:44 18:59 19:00 WBC 12.9 H (4.5-10.0) K/mm3 RBC 4.90 (4.2-5.4) M/mm3 Hgb 14.8 D (12.0-15.0) g/dL Hct 44.3 (37.0-47.0) % MCV 90.4 (80-100) fl MCH 30.2 (26-34) pg MCHC 33.4 (32-36) g/dl RDW 13.4 (11.5-14.5) % Plt Count 323 D (150-375) k/mm3 MPV 10.6 H (7.4-10.4) fl Immature Gran % (Auto) 0.3 (0-0.5) % Neut % (Auto) 70.5 (45.5-73.1) % Lymph % (Auto) 19.6 (18.3-44.2) % Nye % (Auto) 8.3 (2.6-8.5) % Eos % (Auto) 0.9 (0-4.4) % Baso % (Auto) 0.4 (0.2-1.2) % Lymph # (Auto) 2.53 (0.9-3.2) K/mm3 Nye # (Auto) 1.1 H (0.1-0.6) K/mm3 Eos # (Auto) 0.1 (0-0.3) K/mm3 Baso # (Auto) 0.1 (0.0-0.1) K/mm3 Abs Immat Gran (auto) 0.04 H (0.00-0.031) K/mm3 Absolute Neuts (auto) 9.1 H (1.3-6.7) K/mm3 Absolute Nucleated RBC 0.000 (0.0-0.012) K/mm3 Nucleated RBC % 0.0 (0.0-0.2) % Sodium 137 (137-145) mmol/L Potassium 3.9 (3.4-5.0) mmol/L Chloride 105 (98-107) mmol/L Carbon Dioxide 25 (22-30) mmol/L Anion Gap 7 (4-12) mmol/L BUN 14 (7-17) mg/dL Creatinine 1.15 H (0.7-1.0) mg/dL Estim Creat Clear Calc 63 ml/min Estimated GFR 57 L (59 - ) Glucose 91 (65-110) mg/dL Calcium 9.9 (8.4-10.2) mg/dL Total Bilirubin 0.4 (0.2-1.3) mg/dL AST 24 (14-36) U/L ALT 19 (6-35) U/L Alkaline Phosphatase 101 (38-126) U/L Total Protein 8.5 H (6.3-8.2) g/dL Albumin 4.9 (3.5-5.1) g/dL Lipase 81 (23-300) U/L Beta HCG, Quant < 2.39 mIU/ML Urine Color Yellow (Yellow) Urine Appearance Cloudy H (Clear) Urine pH 6.5 (5.0-9.0) Ur Specific [place] 1.018 (1.001-1.035) Urine Protein Negative (Negative) mg/dL Urine Glucose (UA) Negative (Negative) mg/dL Urine Ketones Negative (Negative) mg/dL Ur Blood (Man) Negative (Negative) Urine Nitrate Negative (Negative) Urine Bilirubin Negative (Negative) Urine Urobilinogen 1.0 (<2.0) mg/dL Add Ur Microanalysis Reviewed Leukocyte Esterase Rfl 3+ H (Negative) ARVIN/UL Urine RBC 0-2 (0-2) /hpf Urine WBC 51-100 H (0-3) /hpf Ur Squamous Epith Cells Few (Few) /hpf Urine Bacteria 1+ H /hpf Urine Casts 0-2 Urine Yeast (Budding) Present H (None) /hpf POC Urine HCG, Qual Negative (Negative) C. trachomatis (PCR) Not detected (NOT DETECTE) N. gonorrhoeae (PCR) Not detected (NOT DETECTE) T. vaginalis (PCR) Not detected (NOT DETECTE) Imaging Data Attestation: I personally reviewed and interpreted this imaging study as follows: Radiologist's impression: ITS Impressions Abdomen/Pelvis CT 07/03/25 20:28 IMPRESSION: No acute abnormality is noted in the abdomen and pelvis. All CT scans at this facility are performed using low dose modulation techniques as appropriate to perform exam including the following: automated exposure control; use of iterative reconstruction technique; adjustment of the mA and/or kV according to patient size (this includes techniques or standardized protocols for targeted exams where dose is matched to indication/reason for exam). Discharge Plan Discharge Clinical Impression: Urinary tract infection, Dehydration, Vaginal yeast infection Patient Disposition: Home Condition: Stable Instructions: Antibiotic Form, Urinary Tract Infection in Women (ED), Yeast Infection (ED) Additional Instructions: Please return to the ER with any worsening symptoms. Follow-up with OBGYN as soon as possible for further evaluation and treatment. Take all medications as prescribed, including regularly scheduled medications. Complete your full dose of antibiotics and take a 2nd Diflucan pill in 3 days. Remember to drink lots of water. You may take a probiotic every day to help relieve your symptoms. Patient Language: Bulgarian Prescriptions: New cephalexin 500 mg capsule 500 mg PO Q8H 7 Days Qty: 21 0RF fluconazole 150 mg tablet 150 mg PO ONCE Qty: 1 0RF Rx Instructions: as a single dose, please take this medication on July 06, 2025 No Action Probiotic 3 billion cell capsule 3,000 mmu cells PO DAILY Rx Instructions: administer with a meal acetaminophen 325 mg Tablet 650 mg PO Q6H Qty: 20 0RF hydrocodone-acetaminophen 5-325 mg Tablet 1 tablet PO Q3H PRN (Reason: Breakthrough Pain Rated 4-6) Qty: 20 0RF ibuprofen 600 mg Tablet 600 mg PO Q6H Qty: 30 0RF PNV no.95-ferrous fumarate-FA [] 28 mg iron- 800 mcg tablet 1 tablet PO DAILY Qty: 90 0RF Follow-up/Referrals: PHYSICIAN NOT ON STAFF,NONSTAFF [Primary Care Provider] Jnuior Bradford MD [Physician, [employer] [facility]] Stand Alone Forms: Work/School Release IP Time of Disposition: 21:31
[2025-07-03 19:18] LABS: Hematocrit 44.3 % (37.0-47.0); Hemoglobin 14.8 g/dL (12.0-15.0); Immature Granulocyte Percent A 0.3 % (0-0.5); Lymphocytes Absolute Auto 2.53 K/mm3 (0.9-3.2); Mean Corpuscular HGB Conc 33.4 g/dl (32-36); Mean Corpuscular Hemoglobin 30.2 pg (26-34); Mean Corpuscular Volume 90.4 fl (80-100); Nucleated Red Blood Cells Absolute Auto 0.000 K/mm3 (0.0-0.012); Nucleated Red Blood Cells Perc 0.0 % (0.0-0.2); Platelet Count Result 323 k/mm3 (150-375); Red Blood Count 4.90 M/mm3 (4.2-5.4); White Blood Count 12.9 K/mm3 (4.5-10.0)
[2025-07-03 19:33] LABS: Alanine Aminotransferase 19 U/L (6-35); Albumin Level 4.9 g/dL (3.5-5.1); Alkaline Phosphatase 101 U/L (38-126); Anion Gap 7 mmol/L (4-12); Aspartate Amino Transferase 24 U/L (14-36); Bilirubin,Total 0.4 mg/dL (0.2-1.3); Blood Urea Nitrogen 14 mg/dL (7-17); Calcium 9.9 mg/dL (8.4-10.2); Carbon Dioxide 25 mmol/L (22-30); Chloride 105 mmol/L (98-107); Estimated CRCL calculation 63 ml/min; Estimated Glomerular Filt Rate 57; Glucose 91 mg/dL (65-110); Lipase 81 U/L (23-300); Potassium 3.9 mmol/L (3.4-5.0); Sodium 137 mmol/L (137-145); Total Protein 8.5 g/dL (6.3-8.2)
[2025-07-03] MEDS: SODIUM CHLORIDE 0.9% IV 1,000 ML 999 ML IV CONT (19:40)
[2025-07-03 19:42] LABS: Beta HCG Quantitative < 2.39 mIU/ML
[2025-07-03 19:47] LABS: Add Urine Microscopic? YES; Appearance Urine Cloudy (Clear); Budding Yeast Urine Present /hpf; Glucose Urine UA Negative (Negative); Leukocyte Esterase Ur 3+ LEU/UL (Negative); Need Manual Microscopic Reviewed; Nitrate Urine Negative (Negative); Non Pathogenic Casts 0-2; Specific Grav Ur 1.018 (1.001-1.035)
[2025-07-03 20:26] LABS: Trichomonas Vag PCR NOT DETECTED (NOT DETECTE)
[2025-07-03] MEDS: cefTRIAXone 1 GM VIAL IM (21:46)
[2025-07-03] MEDS: FLUCONAZOLE 150 MG TABLET PO (21:47)
[2025-07-03] MEDS: LIDOCAINE 1% LOCAL INJ 10 ML VIAL (21:47)
[2025-07-03 21:53] VITALS: BP 114/74; PULSE 74; RESP 17; O2SAT 100
== END 2025-07-03 21:54 | disposition home or self-care (01) ==
PROVIDERS: Emergency Medicine; Emergency Provider Registered Nurse
DX: N39.0 Urinary tract infection, site not specified (principal); B37.31 Acute candidiasis of vulva and vagina; E86.0 Dehydration
CPT/HCPCS: 36415; 74177; 80053; 81001; 81025; 83690; 84702; 85025; 87086; 87491; 87591; 87661; 96360; 96372; 99284; A9270; J0696; J2003; J7030; Q9967